=== PATIENT | female | born 1985 | race Caucasian/White ===

== ENCOUNTER 2020-03-11 18:29 | Emergency (ER) | payer MEDICAID ==
[~2020-03-11] VITALS: Ht 170.2 cm; Wt 137.9 kg
[2020-03-11 19:00] VITALS: BP 112/73
--- NOTE | 2020-03-11 21:20 | NUR ---
ERMD TO EVAULATE PT IN THE TENT
[2020-03-11 22:54] VITALS: BP 133/96
--- NOTE | 2020-03-12 00:30 | NUR ---
Patient discharged with v/s stable. Written and verbal after care instructions given and explained. Patient alert, oriented and verbalized understanding of instructions. Ambulatory with steady gait. All questions addressed prior to discharge. ID band removed. Patient advised to follow up with PMD. Rx of COLACE given. Patient educated on indication of medication including possible reaction and side effects. Opportunity to ask questions provided and answered.
== END 2020-03-12 00:30 | disposition home or self-care (01) ==
LOC: MED 18:29
DX: T17.1XXA Foreign body in nostril, initial encounter (principal); E11.9 Type 2 diabetes mellitus without complications; I10 Essential (primary) hypertension; F32.9 Major depressive disorder, single episode, unspecified; X58.XXXA Exposure to other specified factors, initial encounter; Y93.89 Activity, other specified; Y92.89 Other specified places as the place of occurrence of the external cause; Y99.8 Other external cause status
CPT/HCPCS: 76010; 99284

== ENCOUNTER 2020-05-19 20:16 | Emergency (ER) | payer MEDICAID ==
[~2020-05-19] VITALS: Ht 170.2 cm; Wt 136.7 kg
[2020-05-19 20:21] VITALS: BP 136/77
--- NOTE | 2020-05-19 20:25 | NUR ---
35 YO F BIB STUDIO COUCH FRAME BUILDER FOR C/O SUICIDAL IDEATION. PT VERBALIZED PLAN, PT STATES " I WANT TO RIP MY SKIN OUT." PT ALSO STATED SHE WAS GOING TO SWALLOW COINS. RESPIRATIONS CLEAR EVEN UNLABORED. PT DENIES CP/SOB. NO ACUTE PAIN @ THIS TIME. ABD SOFT ROUND NON DISTENDED. GURNEY LOCKED IN LOWEST POSITION. ERMD @ BEDSIDE. HX: DM, HTN, SI RX: METFORMIN, PT DOES NOT HAVE MED LIST @ THIS TIME LMP: 05/16/20 KRYSTLE
[2020-05-19 21:12] LABS: WHITE BLOOD COUNT (AUTO) 7.4 K/uL (4.8-10.8)
[2020-05-19 21:18] LABS: BASOPHILS # (AUTO) 0.1 K/uL (0.00-0.22); BASOPHILS % (AUTO) 1.4 % (0.0-2.0); EOSINOPHILS # (AUTO) 0.2 K/uL (0-0.4); EOSINOPHILS % (AUTO) 2.2 % (0.0-4.0); HEMATOCRIT 39.8 % (36-48); HEMOGLOBIN 13.6 g/dL (12.0-16.0); LYMPHOCYTES # (AUTO) 2.1 K/uL (2.5-16.5); LYMPHOCYTES % (AUTO) 28.8 % (20.5-51.1); MEAN CORPUSCULAR HEMOGLOBIN 30 pg (27-31); MEAN CORPUSCULAR HGB CONC 34 g/dL (33-37); MEAN CORPUSCULAR VOLUME 88.6 fL (80-94); MONOCYTES # (AUTO) 0.6 K/uL (0.8-1.0); MONOCYTES % (AUTO) 7.4 % (1.7-9.3); NEUTROPHILS # (AUTO) 4.5 K/uL (1.8-7.7); NEUTROPHILS % (AUTO) 60.2 % (42.2-75.2); PLATELET COUNT (AUTO) 258 K/uL (140-450); RED CELL DISTRIBUTION WIDTH 14.3 % (11.6-13.7)
--- NOTE | 2020-05-19 21:20 | NUR ---
PER TELEPSYCH REQDEWEY INITIATED
[2020-05-19 21:21] LABS: ACETAMINOPHEN < 0.5 ug/ml (10-30); ALBUMIN 3.3 g/dL (3.4-5.0); ASPARTATE AMINOTRANSFERASE 8 U/L (15-37); CARBON DIOXIDE 28.7 mmol/L (21-32); CHLORIDE 102 mmol/L (98-107); CREATININE 0.7 mg/dL (0.6-1.3); GFR ARICAN-AMERICAN 122 mL/min (>90); GLUCOSE 104 mg/dL (74-106); POTASSIUM 3.7 mmol/L (3.5-5.1); SALICYLATE < 2.8 mg/dL (2.8-20.0); SODIUM SERUM 139 mmol/L (136-145); TOTAL BILIRUBIN 0.2 mg/dL (0.0-1.0); UREA NITROGEN, BLOOD 10 mg/dL (7-18)
--- NOTE | 2020-05-19 21:32 | NUR ---
PT REFUSING COVID LAB SWABS @ THIS TIME, FERMÍN SPOKE WITH PT AND EXPLAINED NECESSITY. AWAITING TELEPYSCH. WILL CONTINUE TO OBSERVE.
--- NOTE | 2020-05-19 22:04 | NUR ---
PT IS TALKING TO THE TELEPSYCH DOCTOR AT THIS TIME, PRODUCT APPLICATIONS SCIENTIST IS AT BEDSIDE WELL.
--- NOTE | 2020-05-19 22:15 | NUR ---
COVID SWAB TIFFANIE AND PCR TAKEN AND SENT TO LAB
--- NOTE | 2020-05-19 22:38 | NUR ---
S/W VESNA COBB WHO RECOMMENDED 5150 HOLD AND CONTINUATION OF HOME MEDICATIONS. FERMÍN CRUZ MADE AWARE
--- NOTE | 2020-05-19 22:57 | NUR ---
URINE SAMPLE TAKEN, URINE DIP DONE, RESULTS SEEN BY ERMD.
--- NOTE | 2020-05-19 23:16 | NUR ---
[place] PD CALLED [phone], SPOKE WITH KENN. WHEN AVAILABLE, PD TO COME OUT TO WRITE 4820 HOLD. CHARGE NURSE MADE AWARE. WILL CONTINUE TO OBSERVE PT.
[2020-05-19 23:17] LABS: BARBITURATE, URINE NEGATIVE ng/ml (NEG <=200); BENZODIAZEPINE, URINE NEGATIVE ng/mL (NEG <=200); CANNABINOID, URINE NEGATIVE ng/mL (NEG <=50); COCAINE, URINE NEGATIVE ng/mL (NEG <=300); OPIATE, URINE NEGATIVE ng/mL (NEG <=2000); PHENCYCLIDINE SCREEN,URINE NEGATIVE ng/mL (NEG <=25)
[2020-05-19] MEDS ORDERED: ATOR10TA PO (23:19)
[2020-05-19] MEDS ORDERED: DOCU-299 PO (23:19)
[2020-05-19] MEDS ORDERED: SERT100T PO (23:19)
[2020-05-19] MEDS ORDERED: DIVA500T1 PO (23:19)
[2020-05-19] MEDS ORDERED: METF500T PO (23:19)
[2020-05-19] MEDS ORDERED: METO25TA PO (23:19)
[2020-05-19] MEDS ORDERED: OLAN20TA1 PO (23:19)
[2020-05-19] MEDS ORDERED: CLIN150C1 PO (23:19)
[2020-05-19] MEDS ORDERED: BUS5 PO (23:19)
[2020-05-19] MEDS ORDERED: ARIP15TA8 PO (23:19)
[2020-05-19] MEDS ORDERED: BEN50 PO (23:19)
[2020-05-19] MEDS ORDERED: busPIRone 5 MG TAB PO ONE (23:25)
[2020-05-19] MEDS ORDERED: ARIPiprazole 10 MG TAB PO ONE (23:25)
[2020-05-19] MEDS ORDERED: SERTRALINE 50 MG TAB PO ONE (23:25)
[2020-05-19] MEDS ORDERED: OLANZapine 10 MG VIAL IM ONE (23:25)
[2020-05-19] MEDS ORDERED: DIVALPROEX 500 MG TABEC PO ONE (23:25)
[2020-05-19] MEDS ORDERED: diphenhydrAMINE 50 MG CAP PO ONE (23:25)
--- NOTE | 2020-05-19 23:28 | NUR ---
[place] RANDALL, OFFICER WALTER AT BEDSIDE TO PLACE 5150 HOLD.
[2020-05-19] MEDS ORDERED: WATER STERILE 10 ML MC ONE (23:45)
--- NOTE | 2020-05-20 00:27 | NUR ---
MEDS GIVEN ORDERED, TOLERATED WELL. WILL CONTINUE TO MONITOR.
--- NOTE | 2020-05-20 01:10 | NUR ---
PT LAYING SUPINE IN BED. VISIBLE CHEST RISE AND FALL NOTED. BED IN LOWEST POSITION. 1:1 MONITORING AND SAFTEY MEASURES IN PLACE. ALL NEEDS MET AT THIS TIME. WILL CONTINUE TO MONITOR.
--- NOTE | 2020-05-20 03:14 | NUR ---
Patient information was received. Intake has been sent to the following facilities for review for placement. [facility]/ [facility]/ Dex Pérez/ HUSSAIN Vasquez/ Karly Sutton/ [facility] Kathi.....Will keep ER informed of any updates
--- NOTE | 2020-05-20 03:19 | NUR ---
PT ON PRONE POSITION, ASLEEP, RESPIRATION EVEN AND UNLABORED, SAFETY MEASURES IN PLACE, CONTINUE ON 1:1 MONITORING, BED IN LOW POSITION.
--- NOTE | 2020-05-20 06:09 | NUR ---
V/S TAKEN AND RECORDED, WNL, KEPT COMFORTABLE, WILL CONTINUE TO MONITOR.
--- NOTE | 2020-05-20 07:13 | NUR ---
PT STABLE, RESPIRATION EVEN AND UNLABORED, NO ACUTE CHANGES THE WHOLE SHIFT, NO DISTRESS, BEDSIDE ENDORSEMENT GIVEN TO AM SHIFT RN FOR CONTINUITY OF CARE.
--- NOTE | 2020-05-20 08:10 | NUR ---
PATIENT QUIETLY EATING BREAKFAST PT IS AAOX4, ACTING APPROPRIATLY IN A CALM, COOPERATIVE MANNER. VSS, AMBULATED WITH STEADY GAIT TO RESTROOM. PROVIDED SUPPLIES FOR AM CARE WHILE IN RESTROOM. CHANGED BED SHEETS. PT STATES SHE IS STILL "HEARING VOICES THAT ARE TELLING ME TO SWALLOW AN OBJECT TO KILL MYSELF" PT IN DIRECT LINE OF SIGHT TO NURSES STATION. NO EQUIPMENT IN ROOM IN WHICH SHE COULD HURT HERSELF WITH. PT IN AGREEMENT WITH TRANSFER TO PSYCH FACILITY. WILL CTM CLOSELY.
[2020-05-20] MEDS ORDERED: IBUPROFEN 600 MG TAB PO ONE (16:25)
[2020-05-20] MEDS ORDERED: DIVALPROEX 500 MG TABEC PO ONE (19:20)
[2020-05-20] MEDS ORDERED: ARIPiprazole 10 MG TAB PO SCH (19:20)
[2020-05-20] MEDS ORDERED: busPIRone 5 MG TAB PO SCH (19:20)
--- NOTE | 2020-05-20 20:05 | NUR ---
AWAKE, AMBULATED TO BR, VOIDED
[2020-05-20] MEDS: SERTRALINE 50 MG TAB PO SCH (21:11)
--- NOTE | 2020-05-21 02:00 | NUR ---
RESING IN BED WITH EYES CLOSED. RESP EVEN AND UNLABORED. SAFETY MEASURES IN PLACE, BEBETO CONT TO MONITOR CLOSELY
--- NOTE | 2020-05-21 04:02 | NUR ---
No beds available through the night. Updated negative results of PCR were faxed to the previous facilities to update information and continue with bed placement. [facility]/ [facility]/ [place]/ [facility]/ [facility]/ [place] Will keep ER informed of any updates.
--- NOTE | 2020-05-21 06:00 | NUR ---
RESTING IN BED WITH EYES CLOSED. IN SUPINE POSITION. RESP EVEN AND UNLABORED. SAFETY MEASURES IN PLACE, WILL CONT TO MONITOR CLOSELY.
--- NOTE | 2020-05-21 07:20 | NUR ---
ENDORSED TO DAY SHIFT RN
[2020-05-21] MEDS ORDERED: ACETAMINOPHEN EXTRA STRENGTH 500 MG TAB PO ONE (07:25)
[2020-05-21] MEDS: metFORMIN 500 MG TAB PO SCH ×2 (07:49→17:21)
--- NOTE | 2020-05-21 07:50 | NUR ---
PT IS ALERT AND AWAKE, BREATHING EVEN AND UNLABORED. NO DISTRESS NOTED. SITTER REMAINS AT BEDSIDE.
[2020-05-21] MEDS ORDERED: CRUSHER, PILL MC ONE (09:21)
[2020-05-21] MEDS: OLANZapine 5 MG ODT PO SCH ×2 (09:28→21:47)
[2020-05-21] MEDS: busPIRone 5 MG TAB PO SCH ×3 (09:28→17:20)
[2020-05-21] MEDS: ATORVASTATIN 20 MG TAB PO SCH (09:28)
[2020-05-21] MEDS: DIVALPROEX 500 MG TABEC PO SCH ×3 (09:28→17:20)
[2020-05-21] MEDS: ARIPiprazole 10 MG TAB PO SCH ×2 (09:28→21:42)
--- NOTE | 2020-05-21 10:33 | NUR ---
PT IS ALERT AND AWAKE, BREATHING EVEN AND UNLABORED. NO DISTRESS NOTED. SITTER REMAINS AT BEDSIDE. PT READING MAGAZINE
--- NOTE | 2020-05-21 11:59 | NUR ---
PT EATING LUNCH TRAY AT THIS TIME.
--- NOTE | 2020-05-21 13:00 | NUR ---
PT IS ALERT AND AWAKE, BREATHING EVEN AND UNLABORED. NO DISTRESS NOTED. SITTER REMAINS AT BEDSIDE.
--- NOTE | 2020-05-21 15:00 | NUR ---
PT IS ALERT AND AWAKE, BREATHING EVEN AND UNLABORED. NO DISTRESS NOTED. SITTER REMAINS AT BEDSIDE.
[2020-05-21] MEDS ORDERED: HYDROcodone/APAP 10/325 MG 1 TAB TAB PO STA (17:19)
--- NOTE | 2020-05-21 18:00 | NUR ---
PT ATE DINNER AT THIS TIME
--- NOTE | 2020-05-21 18:00 | NUR ---
PT IS ALERT AND AWAKE, BREATHING EVEN AND UNLABORED. NO DISTRESS NOTED. SITTER REMAINS AT BEDSIDE.
--- NOTE | 2020-05-21 19:20 | NUR ---
PT REPORT GIVEN TO JULIETA MAYBERRY, TRANSFER OF CARE AT THIS TIME
--- NOTE | 2020-05-21 19:40 | NUR ---
RECEIVED ENDORSEMENT FROM DAYSVTFT NURSE. 35 Y/O, F, LYING IN BED WITH NO SIGNS OF DISTRESS, ALERT TO VOICE, ANOx4. PT REPORTS WAS HAVING THOUGHTS TO HARM SELF AND WAS KICKING ANNA AND SLAPPING HERSELF IN THE HEAD. C/O OF HEARING VOICES BUT DENIES INTENT TO HARM HERSELF AT THIS TIME. PT VERBALIZES CONCERN ON PLACEMENT. VSS. DISCUSSED PLAN OF CARE. SAFETY MEASURES IN PLACE, ALL POTENTIAL HARMFUL EQUIPMENT REMOVED FROM ROOM. PAST MED HX: DM, HTN, SCHIZO AFFECTIVE DX, BIPOLAR DX, S.I
--- NOTE | 2020-05-21 19:55 | NUR ---
ASSISTED PT TO RESTROOM, [facility] PROVIDED, WAITED FOR PT AT DOOR, SLIGHTLY OPEN. BACK TO ER BED 5 WITHOUT INCIDENT. BED CLEANED/ORGANIZED, NO SIGNS OF ANY FOREIGN OBJECTS IN BED OR IN ROOM. WILL CONTINUE TO MONITOR.
[2020-05-21] MEDS: SERTRALINE 50 MG TAB PO SCH (21:43)
--- NOTE | 2020-05-21 21:45 | NUR ---
ALL MEDICATION INDICATIONS AND SIDE EFFECTS EXPLAINED TO PATIENT. VERBALIZED UNDERSTANDING. PATIENT TOOK ALL MEDS AND CONFIRMED WITH RN. WILL MONITOR FOR REACTIONS.
--- NOTE | 2020-05-21 23:30 | NUR ---
PT RESTING WELL IN BED, NO SIGNS OF DISTRESS, VISIBLE CHEST RISE AND FALL, EYES CLOSED, SAFETY MEASURES IN PLACE.
--- NOTE | 2020-05-22 02:12 | NUR ---
PT SITTING UP IN BED, NO COMPLAINTS AT THIS TIME. DENIES ANY INTENT TO HARM SELF. VSS. BED LOCKED AND IN LOWEST POSITION. SIDE RAILS UP, PT ABLE TO MAKE NEEDS KNOWN.
--- NOTE | 2020-05-22 02:40 | NUR ---
PT C/O LOWER BACK PAIN. FERMÍN CRUZ MADE AWARE. PT GIVEN SANDWHICH AND JUICE. ALL NEEDS MET AT THIS TIME.
[2020-05-22] MEDS ORDERED: ACETAMINOPHEN EXTRA STRENGTH 500 MG TAB PO ONE (02:45)
--- NOTE | 2020-05-22 03:10 | NUR ---
PT GIVEN SANDWICH AND JUICE BOX. NO HARMFUL UTENSILS/OBJECTS AT BEDSIDE. PAIN MEDS GIVEN. WILL REASSESS.
--- NOTE | 2020-05-22 05:45 | NUR ---
APPEARS CALM, EYES CLOSED, ALERT TO VOICE. ABLE TO SELF TURN. NO SIGNS OF DISTRESS, SAFETY MEASURES IN PLACE.
--- NOTE | 2020-05-22 06:36 | NUR ---
TELEPSYCH INITIATED PER DR. Kurt CRUZ
--- NOTE | 2020-05-22 07:18 | NUR ---
NO SIGNS OF DISTRESS, PT IN STABLE CONDITION, ENDORSED TO DAYSHIFT NURSE FOR CONTINUITY OF CARE.
--- NOTE | 2020-05-22 07:30 | NUR ---
REPORT RECEIVED FROM JULIETA MAYBERRY. PT IS RESTING WITH EYES CLOSED, BREATHING EVEN AND UNLABORED. NO DISTRESS NOTED. SITTER REMAINS AT BEDSIDE.
--- NOTE | 2020-05-22 07:30 | NUR ---
Note ana in EDM - 05/22/20 at 0732 by FROY REPORT RECEIVED FROM JULIETA MAYBERRY. PT IS RESTING WITH EYES CLOSED, BREATHING EVEN AND UNLABORED. NO DISTRESS NOTED. SITTER REMAINS AT BEDSIDE.
--- NOTE | 2020-05-22 07:30 | NUR ---
REPORT RECEIVED FROM JULIETA MAYBERRY. PT IS RESTING WITH EYES CLOSED, BREATHING EVEN AND UNLABORED. NO DISTRESS NOTED. SITTER REMAINS AT BEDSIDE.
--- NOTE | 2020-05-22 08:40 | NUR ---
Cheikh perez in [facility] - 05/22/20 [address] HAWKINS AT BEDSIDE SPEAKING TO PT
--- NOTE | 2020-05-22 08:40 | NUR ---
DR ALCOCER AT BEDSIDE SPEAKING TO PT
[2020-05-22] MEDS: ARIPiprazole 10 MG TAB PO SCH ×2 (08:47→21:00)
[2020-05-22] MEDS: busPIRone 5 MG TAB PO SCH ×3 (08:47→17:30)
[2020-05-22] MEDS: metFORMIN 500 MG TAB PO SCH ×2 (08:47→17:31)
[2020-05-22] MEDS: OLANZapine 5 MG ODT PO SCH (08:48)
[2020-05-22] MEDS: ATORVASTATIN 20 MG TAB PO SCH (08:48)
[2020-05-22] MEDS: DIVALPROEX 500 MG TABEC PO SCH ×3 (08:48→17:30)
--- NOTE | 2020-05-22 09:20 | NUR ---
PER DR ALCOCER PT IS NO LONGER ON HOLD
--- NOTE | 2020-05-22 09:47 | NUR ---
SOCIAL WORK NOTE: PATRICIA CONTACTED PATIENT'S ASSISTED, LEATHA LEROY, AND SPOKE TO INTERIM FIELD SPEC, DOMINIC BRYANT [phone]. PER DOMINIC, PATIENT'S [facility] WORKER, TIM OWUSU [phone], WOULD NEED TO BE INVOLVED BEFORE HE IS ABLE TO ACCEPT PATIENT BACK. PATRICIA CONTACTED TIM WHO REQUESTED CLINICALS BE FAXED TO [phone]. Addendum: 05/22/20 at 1614 by Franki Connor SS PATRICIA CONTACTED [facility] [phone] AND SPOKE WITH JUAN. PATRICIA INFORMED JUAN THAT HE WAS UNABLE TO CONTACT TIM THROUGHOUT THE DAY TO SEE IF CLINICALS WERE RECEIVED. PATRICIA PROVIDED JUAN PHONE NUMBER TO NURSING STATION. JUAN STATED THAT SHE WILL CONTACT FACILITY TO COORDINATE DISCHARGE.
--- NOTE | 2020-05-22 11:00 | NUR ---
PT IS ALERT AND AWAKE, BREATHING EVEN AND UNLABORED. NO DISTRESS NOTED. PT TALKING TO MOTHER ON PHONE
--- NOTE | 2020-05-22 12:00 | NUR ---
PT EATING LUNCH AT THIS TIME
--- NOTE | 2020-05-22 14:00 | NUR ---
PT IS ALERT AND AWAKE, BREATHING EVEN AND UNLABORED. NO DISTRESS NOTED. PT TALKING TO BOYFRIEND ON PHONE
--- NOTE | 2020-05-22 18:00 | NUR ---
PT EATING DINNER AT THIS TIME
--- NOTE | 2020-05-22 18:44 | NUR ---
PT IS ALERT AND AWAKE, BREATHING EVEN AND UNLABORED. NO DISTRESS NOTED.
--- NOTE | 2020-05-22 19:13 | NUR ---
Assumed patient care. Report received from SHAWANDA Vicente
--- NOTE | 2020-05-22 19:29 | NUR ---
Patient resting in bed. No distress noted. Will continue to monitor.
--- NOTE | 2020-05-22 20:38 | NUR ---
Patient in no distress at this time. Will continue to monitor.
--- NOTE | 2020-05-22 21:20 | NUR ---
Cheikh perez in EDM - 05/22/20 at 2123 by JUAN Patient discharged with v/s stable. Written and verbal after care instructions given and explained. Patient/People's care, Enrike verbalized understanding. Ambulatory with steady gait. All questions addressed prior to discharge. Advised to follow up with PMD.
[2020-05-22 21:22] VITALS: BP 110/61
== END 2020-05-22 21:21 | disposition home or self-care (01) ==
LOC: MED 20:16
DX: R45.851 Suicidal ideations (principal); E11.9 Type 2 diabetes mellitus without complications; I10 Essential (primary) hypertension; E78.00 Pure hypercholesterolemia, unspecified; F32.9 Major depressive disorder, single episode, unspecified; Z86.73 Personal history of transient ischemic attack (TIA), and cerebral infarction without residual deficits; Z20.822 Contact with and (suspected) exposure to COVID-19
CPT/HCPCS: 71045; 74018; 80053; 80305; 81002; 81025; 84703; 85025; 87426; 96372; 99285; G0480; G0482; J3490; Q0163; U0003

== ENCOUNTER 2020-06-07 19:40 | Emergency (ER) | payer MEDICAID ==
[~2020-06-07] VITALS: Ht 170.2 cm; Wt 134.3 kg
[~2020-06-07 19:40] MED LIST: ARIP15TA8 PO; ATOR10TA PO; BEN50 PO; BUS5 PO; CLIN150C1 PO; DIVA500T1 PO; DOCU-299 PO; METF500T PO; METO25TA PO; OLAN20TA1 PO; SERT100T PO
--- NOTE | 2020-06-07 19:51 | NUR ---
AMBULATED TO ER BED 6
[2020-06-07 19:54] VITALS: BP 123/90
--- NOTE | 2020-06-07 20:00 | NUR ---
35 Y/O F BROUGHT IN BY CAREGIVER FROM HOME FOR INTENT TO HARM OTHERS. SHE SAID IT STARTED AROUND 1800 TODAY 06/07/20. PT WAS PLACED IN ROOM WITH [address] PMH: HIGH CHOLESTEROL, HTN, AND DM2. IS C/O R KNEE PAIN 01/13, TOOK TYLENOL 1929. ALLERGIES TO SULFA, PENICILIIN, CIPRO. SEEN ON 05/19/20 FOR SIMILIAR INTENT. STATES SHE HAD COVID LAST YEAR, COULD NOT GIVE ME A SEASON, MONTH OR TIME FRAME OTHER THAN 2019. DENIES ANY CONTACT WITH COVID POSITIVE PERSONS OR SOB, COUGH, CHEST PAIN. PT IN ROOM 6 WITH ITEMS OUT OF ROOM IN FRONT OF NURSE STATION FOR OBS.
--- NOTE | 2020-06-07 20:20 | NUR ---
AMBULATED TO BR WITH STEADY GAIT. UA OBTAINED, CHANGED INTO PT GOWN, REMAINS IN LINE OF SIGHT.
--- NOTE | 2020-06-07 20:25 | NUR ---
COVID SWABS OBTAINED AND SENT TO LAB
--- NOTE | 2020-06-07 20:30 | NUR ---
DR. LIMON AT BEDSIDE FOR EXAM
[2020-06-07 20:31] LABS: BASOPHILS # (AUTO) 0.1 K/uL (0.00-0.22); BASOPHILS % (AUTO) 1.2 % (0.0-2.0); EOSINOPHILS # (AUTO) 0.2 K/uL (0-0.4); EOSINOPHILS % (AUTO) 2.4 % (0.0-4.0); HEMATOCRIT 39.1 % (36-48); LYMPHOCYTES # (AUTO) 1.9 K/uL (2.5-16.5); LYMPHOCYTES % (AUTO) 25.7 % (20.5-51.1); MEAN CORPUSCULAR HEMOGLOBIN 30 pg (27-31); MEAN CORPUSCULAR HGB CONC 33 g/dL (33-37); MONOCYTES # (AUTO) 0.6 K/uL (0.8-1.0); MONOCYTES % (AUTO) 7.9 % (1.7-9.3); NEUTROPHILS # (AUTO) 4.7 K/uL (1.8-7.7); NEUTROPHILS % (AUTO) 62.8 % (42.2-75.2); PLATELET COUNT (AUTO) 279 K/uL (140-450); RED CELL DISTRIBUTION WIDTH 14.6 % (11.6-13.7); WHITE BLOOD COUNT (AUTO) 7.5 K/uL (4.8-10.8)
[2020-06-07 20:42] LABS: ANION GAP 14.2 (8-16); ASPARTATE AMINOTRANSFERASE 8 U/L (15-37); CARBON DIOXIDE 27.5 mmol/L (21-32); CHLORIDE 102 mmol/L (98-107); CREATININE 0.5 mg/dL (0.6-1.3); GFR ARICAN-AMERICAN 180 mL/min (>90); GLUCOSE 92 mg/dL (74-106); POTASSIUM 3.7 mmol/L (3.5-5.1); SODIUM SERUM 140 mmol/L (136-145); TOTAL BILIRUBIN 0.2 mg/dL (0.0-1.0); UREA NITROGEN, BLOOD 11 mg/dL (7-18)
[2020-06-07 20:43] LABS: ACETAMINOPHEN < 0.5 ug/ml (10-30); ALBUMIN 3.2 g/dL (3.4-5.0); SALICYLATE < 2.8 mg/dL (2.8-20.0)
[2020-06-07] MEDS ORDERED: ACETAMINOPHEN 325 MG TAB PO ONE (20:55)
[2020-06-07 21:12] LABS: BARBITURATE, URINE NEGATIVE ng/ml (NEG <=200); BENZODIAZEPINE, URINE NEGATIVE ng/mL (NEG <=200); CANNABINOID, URINE NEGATIVE ng/mL (NEG <=50); COCAINE, URINE NEGATIVE ng/mL (NEG <=300); OPIATE, URINE NEGATIVE ng/mL (NEG <=2000); PHENCYCLIDINE SCREEN,URINE NEGATIVE ng/mL (NEG <=25)
--- NOTE | 2020-06-07 21:54 | NUR ---
PER TELEPSYCH REQUEST INITIATED
--- NOTE | 2020-06-07 22:45 | NUR ---
TELE- PSYCH EVALUATION COMPLETED.
[2020-06-07 22:54] VITALS: BP 123/90
--- NOTE | 2020-06-07 22:54 | NUR ---
CAREGIVER AT BEDSIDE. PT TO BE DISCHARGEDPatient discharged with v/s stable. Written and verbal after care instructions given and explained. Patient verbalized understanding. Ambulatory with steady gait. All questions addressed prior to discharge. Advised to follow up with PMD.
== END 2020-06-07 22:54 | disposition home or self-care (01) ==
LOC: MED 19:40
DX: F31.9 Bipolar disorder, unspecified (principal); R45.850 Homicidal ideations; E11.9 Type 2 diabetes mellitus without complications; I10 Essential (primary) hypertension; Z86.73 Personal history of transient ischemic attack (TIA), and cerebral infarction without residual deficits; Z79.899 Other long term (current) drug therapy; F20.89 Other schizophrenia; Z88.0 Allergy status to penicillin; Z88.2 Allergy status to sulfonamides; Z88.1 Allergy status to other antibiotic agents; Z20.822 Contact with and (suspected) exposure to COVID-19
CPT/HCPCS: 36415; 80053; 80305; 84703; 85025; 87426; 99285; G0480; G0482; U0003

== ENCOUNTER 2020-06-29 19:23 | Emergency (ER) | payer MEDICAID ==
[~2020-06-29] VITALS: Ht 172.7 cm; Wt 136.1 kg
--- NOTE | 2020-06-29 19:27 | NUR ---
BERKLEY TORRES TAKEN TO BED #7
--- NOTE | 2020-06-29 19:30 | NUR ---
PATIENT PRESENTS TO ED WITH SI . PT ON 5150 AND STATES SHE SWALLOWED A JEN . DENIES N/V/D; SKIN IS PINK/WARM/DRY; AAOX4 LUNGS CLEAR BL; HR EVEN AND REGULAR; PT DENIES ANY FEVER, CP, SOB, OR COUGH AT THIS TIME; PATIENT STATES PAIN OF 0/10 AT THIS TIME; VSS; PATIENT POSITIONED FOR COMFORT; HOB ELEVATED; BEDRAILS UP X2; BED DOWN. ER MD MADE AWARE OF PT STATUS.
[2020-06-29 20:22] LABS: BASOPHILS % (AUTO) 0.5 % (0.0-2.0); EOSINOPHILS # (AUTO) 0.1 K/uL (0-0.4); EOSINOPHILS % (AUTO) 1.7 % (0.0-4.0); HEMATOCRIT 39.7 % (36-48); HEMOGLOBIN 13.4 g/dL (12.0-16.0); LYMPHOCYTES # (AUTO) 1.9 K/uL (2.5-16.5); MEAN CORPUSCULAR HEMOGLOBIN 31 pg (27-31); MEAN CORPUSCULAR HGB CONC 34 g/dL (33-37); MONOCYTES # (AUTO) 0.5 K/uL (0.8-1.0); MONOCYTES % (AUTO) 7.1 % (1.7-9.3); NEUTROPHILS # (AUTO) 4.9 K/uL (1.8-7.7); NEUTROPHILS % (AUTO) 64.7 % (42.2-75.2); PLATELET COUNT (AUTO) 274 K/uL (140-450); RED BLOOD CELL COUNT(AUTO) 4.36 MIL/uL (4.20-5.40); RED CELL DISTRIBUTION WIDTH 13.9 % (11.6-13.7); WHITE BLOOD COUNT (AUTO) 7.5 K/uL (4.8-10.8)
--- NOTE | 2020-06-29 20:23 | NUR ---
WALKED URINE TO LAB AND HANDED OFF TO EDMOND.
[2020-06-29 20:36] LABS: BARBITURATE, URINE NEGATIVE ng/ml (NEG <=200); BENZODIAZEPINE, URINE NEGATIVE ng/mL (NEG <=200); CANNABINOID, URINE NEGATIVE ng/mL (NEG <=50); COCAINE, URINE NEGATIVE ng/mL (NEG <=300); OPIATE, URINE NEGATIVE ng/mL (NEG <=2000); PHENCYCLIDINE SCREEN,URINE NEGATIVE ng/mL (NEG <=25)
[2020-06-29 20:42] LABS: ALBUMIN 3.2 g/dL (3.4-5.0); ANION GAP 10.7 (8-16); ASPARTATE AMINOTRANSFERASE 8 U/L (15-37); CARBON DIOXIDE 29.3 mmol/L (21-32); CHLORIDE 104 mmol/L (98-107); CREATININE 0.6 mg/dL (0.6-1.3); GFR ARICAN-AMERICAN 145 mL/min (>90); GLUCOSE 115 mg/dL (74-106); SODIUM SERUM 140 mmol/L (136-145); THYROID STIMULATING HORMONE 2.04 uIU/mL (0.34-3.74); TOTAL BILIRUBIN 0.2 mg/dL (0.0-1.0); UREA NITROGEN, BLOOD 12 mg/dL (7-18)
[2020-06-29 20:43] LABS: ACETAMINOPHEN < 0.5 ug/ml (10-30); SALICYLATE < 2.8 mg/dL (2.8-20.0)
--- NOTE | 2020-06-29 21:26 | NUR ---
2125 SUBMITTED A TELEPSYCH FOR THIS PT CONNECT ID GIVEN AT 21:25
--- NOTE | 2020-06-29 22:35 | NUR ---
[facility]
--- NOTE | 2020-06-29 22:40 | NUR ---
UPDATE PROVIDED TO PT CAREGIVER
--- NOTE | 2020-06-29 23:03 | NUR ---
YAMILE RANDALL AT BEDSIDE TO PLACE 5150 HOLD
--- NOTE | 2020-06-29 23:05 | NUR ---
UPDATE PROVIDED TO PT CAREGIVER
--- NOTE | 2020-06-29 23:10 | NUR ---
OFFICIAL 5150 HOLD WRITTEN.
--- NOTE | 2020-06-30 01:05 | NUR ---
COVERING PRIMARY RN FOR LUNCH RELIEF---- PT SEATED UPRIGHT ON BED AND EATING SNACKS.SAFETY MEASURES IN PLACE. 1:1 MONITORING. BED IN LOWEST POSITION. WILL CONTINUE TO MONITOR.
--- NOTE | 2020-06-30 02:18 | NUR ---
01:30 FAXED CLINICALS TO [facility] [employer] 02:15 CALLED TO F/UP GOT V/MAILL LEFT MESSAGE ON AREN MISHRA'S V/MAIL.
--- NOTE | 2020-06-30 03:27 | NUR ---
Packet received for placement. Fax to [place]. Will wait for review from [facility] before faxing to other facilities.
--- NOTE | 2020-06-30 03:30 | NUR ---
S/W Court from [facility] to call back with outcome
--- NOTE | 2020-06-30 04:00 | NUR ---
RESTING COMFORTABLY WITH EYES CLOSED, RESPIRATIONS REGULAR AND UNLABORED
--- NOTE | 2020-06-30 04:49 | NUR ---
RECEIVED CALL FROM [facility], SPOKE WITH [facility]. REQUESTING FOR TEST FOR TRANSFER. FAX NUMBER [phone]
--- NOTE | 2020-06-30 05:50 | NUR ---
PT AMBULATED TO RESTROOM TO PROVIDE URINE SPECIMEN.
--- NOTE | 2020-06-30 07:10 | NUR ---
call received from ruddy [place] STATING THAT CHARGE NURSE DOES NOT FEEL THIS PATIENT IS SAFE FOR TRANSFER TO THEIR FACILITY.
--- NOTE | 2020-06-30 07:10 | NUR ---
CARE ENDORSED TO SHAWANDA GAGNON
--- NOTE | 2020-06-30 07:15 | NUR ---
ENDORSEMENT RECEIVED FROM SHAWANDA SUAZO. CONTINUATION OF CARE AT THIS POINT.
--- NOTE | 2020-06-30 07:19 | NUR ---
PT SITTING ON BED, EYES OPEN, BREATHING EVEN AND UNLABORED. PT STATES SHE REMAINS "FEELING DEPRESSED AND SUICIDAL". ASKED IF SUICIDAL IDEATION REMAINS IN PLACE TODAY. PT REPLIED "YES". SI PRECAUTIONS REMAIN IN PLACE. WILL CONTINUE TO ASSESS.
--- NOTE | 2020-06-30 08:02 | NUR ---
NOVEL CORONAVIRUS SWAB OBTAINED AND TAKEN TO LAB.
[2020-06-30] MEDS ORDERED: DIVALPROEX 500 MG TABEC PO ONE (09:00)
[2020-06-30] MEDS: ARIPiprazole 10 MG TAB PO SCH ×2 (09:17→21:06)
[2020-06-30] MEDS: busPIRone 5 MG TAB PO SCH ×3 (09:18→17:06)
[2020-06-30] MEDS: SERTRALINE 50 MG TAB PO SCH (09:18)
--- NOTE | 2020-06-30 11:05 | NUR ---
PT LYING IN ROOM, EYES CLOSED, BREATHING EVEN AND UNLABORED. SI SAFETY PRECAUTIONS AND 1:[address] WILL COTINUE TO ASSESS.
--- NOTE | 2020-06-30 12:13 | NUR ---
LUNCH TRAY PROVIDED.
--- NOTE | 2020-06-30 12:30 | NUR ---
PATIENT IN ROOM AWAKE, EATING, BEHAVING APPROPRIATELY. SAFETY PRECAUTIONS AND 1:[address] WILL CONTINUE TO ASSESS.
--- NOTE | 2020-06-30 13:19 | NUR ---
PT LYING IN ROOM, EYES CLOSED, BREATHING EVEN AND UNLABORED. SAFETY PRECAUTIONS AND 1:[address] WILL COTINUE TO ASSESS.
--- NOTE | 2020-06-30 14:42 | NUR ---
PT LYING IN ROOM, EYES CLOSED, BREATHING EVEN AND UNLABORED. SAFETY PRECAUTIONS AND 1:[address] WILL COTINUE TO ASSESS.
--- NOTE | 2020-06-30 15:15 | NUR ---
pt malka has been refered to [facility] for referal
--- NOTE | 2020-06-30 16:30 | NUR ---
PT LYING IN ROOM, EYES CLOSED, BREATHING EVEN AND UNLABORED. SAFETY PRECAUTIONS AND 1:[address] WILL COTINUE TO ASSESS.
--- NOTE | 2020-06-30 17:37 | NUR ---
PT SITTIND IN ROOM AWAKE AND QUIET, BREATHING EVEN AND UNLABORED. SAFETY PRECAUTIONS AND 1:[address] WILL COTINUE TO ASSESS.
--- NOTE | 2020-06-30 19:13 | NUR ---
ENDORSEMENT PROVIDED TO SHAWANDA SUAZO AND SHAWANDA MCNAIR FOR CONTINUATION OF CARE.
--- NOTE | 2020-06-30 19:15 | NUR ---
RECEIVED PT RESTING IN BED WITH EYES CLOSED. RESPIRATIONS REGULAR AND UNLABORED
[2020-06-30] MEDS ORDERED: IBUPROFEN 600 MG TAB PO ONE (20:55)
--- NOTE | 2020-06-30 23:56 | NUR ---
Intake information has been sent to several facilities in prior shift. [facility]/ [facility]/HUSSAIN Pulidozayra Rivera denied patient due to needing ligher level of care Intake information has also been sent to [facility]/ Roc[facility] Rehman/ [facility] [place] Will keep facility updated with any information
--- NOTE | 2020-07-01 07:15 | NUR ---
PT IN ROOM LYING IN BED, EYES CLOSED, VISIBLE CHEST RISE AND FALL. NO DISTRESS NOTED. SAFETY PRECAUTIONS AND 1:[address] WILL CONTINUE TO ASSESS.
--- NOTE | 2020-07-01 08:00 | NUR ---
Received report. [facility] still working on placement at this time.
--- NOTE | 2020-07-01 08:57 | NUR ---
PSYCH MD AT BEDSIDE
[2020-07-01] MEDS: ARIPiprazole 10 MG TAB PO SCH (09:05)
[2020-07-01] MEDS: SERTRALINE 50 MG TAB PO SCH (09:06)
[2020-07-01] MEDS: busPIRone 5 MG TAB PO SCH (09:06)
--- NOTE | 2020-07-01 09:24 | NUR ---
CONTACTED PATIENTS PREVIOUS RESIDENCE AT [facility], STAFF STATES THAT THEY ARE UNSURE IF PATIENT IS ABLE TO GO BACK FACILITY AT THIS TIME AND WILL NEED TO CONTACT PTS STOCK LAYER
--- NOTE | 2020-07-01 09:57 | NUR ---
SPOKE WITH HERMILA SMART REGARDING PATIENTS DISCHARGE ORDERS. HERMILA STATES THAT PATIENT IS UNDER A CONSERVATORSHIP BY [facility], BUT THEY WILL SEND A CAREGIVER TO COME PICK HER UP AND TAKE HER BACK TO HER FACILITY AT "[facility]". PATIENT CURRENTLY IN BED, AAOX4. GCS 15. ALL NEEDS MET AT THIS TIME.
--- NOTE | 2020-07-01 10:01 | NUR ---
PT IN BED SITTING QUIETLY, BREATHING EVEN AND UNLABORED. NO DISTRESS NOTED. SAFETY PRECAUTIONS AND 1:[address] WILL CONTINUE TO ASSESS.
[2020-07-01 10:28] VITALS: BP 133/73
--- NOTE | 2020-07-01 10:29 | NUR ---
Patient discharged with v/s stable. Written and verbal after care instructions given and explained. Patient verbalized understanding. Ambulatory WITH HARSH DRUMMOND FROM [facility]. All questions addressed prior to discharge. Advised to follow up with PMD.
== END 2020-07-01 10:29 | disposition home or self-care (01) ==
LOC: MED 19:23
DX: R45.851 Suicidal ideations (principal); F25.9 Schizoaffective disorder, unspecified; E11.9 Type 2 diabetes mellitus without complications; I10 Essential (primary) hypertension; Z20.822 Contact with and (suspected) exposure to COVID-19
CPT/HCPCS: 36415; 71045; 74018; 80053; 80305; 81002; 81025; 84443; 85025; 87426; 99285; G0480; G0482; U0003

== ENCOUNTER 2021-10-09 19:00 | Emergency (ER) | payer MEDICAID ==
[~2021-10-09] VITALS: Ht 170.2 cm; Wt 136.5 kg
[2021-10-09 19:00] VITALS: BP 119/83
[~2021-10-09 19:00] MED LIST changes: +ARIP15TA PO; -ARIP15TA8 PO; +METF-346 PO; -METF500T PO
--- NOTE | 2021-10-09 19:32 | NUR ---
pt given urine specimen cup at this time
[2021-10-10] MEDS ORDERED: MEDR10TA PO (00:44)
--- NOTE | 2021-10-10 01:08 | NUR ---
Dr. David explained results and treatment plans for patient and her caregiver.
[2021-10-10 01:26] VITALS: BP 132/79
--- NOTE | 2021-10-10 01:26 | NUR ---
Patient discharged with v/s stable. Written and verbal after care instructions given and explained. Patient alert, oriented and verbalized understanding of instructions. Ambulatory with steady gait. All questions addressed prior to discharge. ID band removed. Patient advised to follow up with PMD. Rx of Provera given. Patient educated on indication of medication including possible reaction and side effects. Opportunity to ask questions provided and answered.
== END 2021-10-10 01:28 | disposition home or self-care (01) ==
LOC: MED 19:00
DX: N93.9 Abnormal uterine and vaginal bleeding, unspecified (principal); E11.9 Type 2 diabetes mellitus without complications; I10 Essential (primary) hypertension; Z79.899 Other long term (current) drug therapy; Z88.0 Allergy status to penicillin; Z88.2 Allergy status to sulfonamides; Z88.1 Allergy status to other antibiotic agents; Z86.73 Personal history of transient ischemic attack (TIA), and cerebral infarction without residual deficits
CPT/HCPCS: 81002; 81025; 99283

== ENCOUNTER 2021-11-13 21:38 | Emergency (ER) | payer MEDICAID ==
[~2021-11-13] VITALS: Ht 170.2 cm; Wt 134.3 kg
[~2021-11-13 21:38] MED LIST changes: +MEDR10TA PO
[2021-11-13 21:40] VITALS: BP 114/72
--- NOTE | 2021-11-13 21:49 | NUR ---
PT TAKEN TO BED 5
[2021-11-13 22:18] LABS: BASOPHILS % (AUTO) 0.5 % (0.0-2.0); EOSINOPHILS # (AUTO) 0.1 K/uL (0-0.4); EOSINOPHILS % (AUTO) 1.9 % (0.0-4.0); HEMATOCRIT 39.3 % (36-48); HEMOGLOBIN 12.9 g/dL (12.0-16.0); LYMPHOCYTES # (AUTO) 2.2 K/uL (2.5-16.5); MEAN CORPUSCULAR HEMOGLOBIN 28 pg (27-31); MEAN CORPUSCULAR HGB CONC 33 g/dL (33-37); MEAN CORPUSCULAR VOLUME 85.6 fL (80-94); MONOCYTES # (AUTO) 0.5 K/uL (0.8-1.0); MONOCYTES % (AUTO) 6.4 % (1.7-9.3); NEUTROPHILS # (AUTO) 4.6 K/uL (1.8-7.7); NEUTROPHILS % (AUTO) 61.2 % (42.2-75.2); PLATELET COUNT (AUTO) 369 K/uL (140-450); RED BLOOD CELL COUNT(AUTO) 4.59 MIL/uL (4.20-5.40); RED CELL DISTRIBUTION WIDTH 15.4 % (11.6-13.7); WHITE BLOOD COUNT (AUTO) 7.5 K/uL (4.8-10.8)
[2021-11-13 22:32] LABS: APPEARANCE,URINE CLEAR (CLEAR); BILIRUBIN,URINE NEGATIVE (NEGATIVE); BLOOD, URINE TRACE-I (NEGATIVE); COLOR,URINE YELLOW (YELLOW); LEUKOCYTE ESTERASE ,URINE NEGATIVE (NEGATIVE); NITRITE, URINE NEGATIVE (NEGATIVE); UGLUCOSE NEGATIVE (NEGATIVE)
[2021-11-13 22:33] LABS: ALBUMIN 3.2 g/dL (3.4-5.0); ANION GAP 11.2 (8-16); ASPARTATE AMINOTRANSFERASE 5 U/L (15-37); CARBON DIOXIDE 26.8 mmol/L (21-32); CHLORIDE 107 mmol/L (98-107); CREATININE 0.5 mg/dL (0.6-1.3); GFR ARICAN-AMERICAN 179 mL/min (>90); GLUCOSE 128 mg/dL (74-106); SODIUM SERUM 141 mmol/L (136-145); TOTAL BILIRUBIN 0.2 mg/dL (0.0-1.0); UREA NITROGEN, BLOOD 9 mg/dL (7-18)
[2021-11-13 22:37] LABS: SALICYLATE < 2.8 mg/dL (2.8-20.0)
[2021-11-13 22:59] LABS: BARBITURATE, URINE NEGATIVE ng/ml (NEG <=200)
[2021-11-13 23:00] LABS: BENZODIAZEPINE, URINE NEGATIVE ng/mL (NEG <=200); CANNABINOID, URINE NEGATIVE ng/mL (NEG <=50); COCAINE, URINE NEGATIVE ng/mL (NEG <=300); OPIATE, URINE NEGATIVE ng/mL (NEG <=2000); PHENCYCLIDINE SCREEN,URINE NEGATIVE ng/mL (NEG <=25)
[2021-11-13 23:01] LABS: ACETAMINOPHEN < 0.5 ug/ml (10-30)
--- NOTE | 2021-11-13 23:10 | NUR ---
PT RETURN FROM RADIOLOGY
--- NOTE | 2021-11-14 00:22 | NUR ---
Dr. Bell examining patient.
--- NOTE | 2021-11-14 00:26 | NUR ---
TELEPSYCH REQUEST INITIATED PER DR. DIAZ
--- NOTE | 2021-11-14 01:15 | NUR ---
36 Y/O BIB STAFF FOR SI. PT HAD AUDITORY VOICES TELLING HER TO SWALLOW METAL. PT STATES THAT SHES " NOT DOING GOOD" AND THE VOICES TELL HER MANY THINGS THIS TIME IT TOLD HER TO SWALLOW METAL. PT STATED SHE HAS PAIN 5/10. PMH:DM2, SCHIZOPHRENIA, HTN, HYPERLIPIDEMIA, BORDERLINE PERSONAL DISORDER, PT HAD SCREW REMOVED LAST YEAR RX: FAMOTIDINE, METROPEOLOL, ATORVASTATIN, DIVALPROEX, SERTRALINE, BUSPIRONE, METFORMIN, OLANZAPRIN, ZOLPIDEM, ONDANSTERON SEE CHART FOR DOSAGES
--- NOTE | 2021-11-14 05:47 | NUR ---
PT SLEEPING IN A SIDE LYING POSITION. MIDDLE SCHOOL TECHNOLOGY TEACHER AT BEDSIDE
--- NOTE | 2021-11-14 07:01 | NUR ---
RETURN CALL FROM [facility]LE[facility]. TALAMANTES WHO SPOKE WITH PRIMARY NURSE Ling BRADEN
--- NOTE | 2021-11-14 07:07 | NUR ---
GAVE REPORT TO
--- NOTE | 2021-11-14 07:15 | NUR ---
SOC TELEMED DOCTOR SPEAKING WITH PATIENT
--- NOTE | 2021-11-14 07:23 | NUR ---
Pt report given to CHRISTIAN. Transfer of care at this time.
--- NOTE | 2021-11-14 07:24 | NUR ---
Recevied report from KIMANI Ward for transfer of care.
[2021-11-14 08:11] VITALS: BP 135/72
--- NOTE | 2021-11-14 08:11 | NUR ---
Patient discharged with v/s stable. Written and verbal after care instructions given. Patient verbalized understanding. Ambulatory with steady gait. All questions addressed prior to discharge. Advised to follow up with PMD.
--- NOTE | 2021-11-14 08:41 | NUR ---
The patient's care was reviewed and supervised by Roselyn Zaidi RN.
--- NOTE | 2021-11-14 08:42 | NUR ---
Chart checked and completed. The patient's care was reviewed and supervised by Roselyn Zaidi RN.
== END 2021-11-14 08:11 | disposition home or self-care (01) ==
LOC: MED 21:38
DX: R45.851 Suicidal ideations (principal); Z20.822 Contact with and (suspected) exposure to COVID-19; F29 Unspecified psychosis not due to a substance or known physiological condition; R44.0 Auditory hallucinations; R07.9 Chest pain, unspecified; E11.9 Type 2 diabetes mellitus without complications; I10 Essential (primary) hypertension; Z88.0 Allergy status to penicillin; Z88.1 Allergy status to other antibiotic agents; Z88.2 Allergy status to sulfonamides; Z79.899 Other long term (current) drug therapy; Z79.84 Long term (current) use of oral hypoglycemic drugs; Z98.890 Other specified postprocedural states
CPT/HCPCS: 36415; 71045; 74018; 80053; 80305; 81003; 81025; 85025; 87426; 87635; 99285; C9803; G0480; G0482

== ENCOUNTER 2021-11-16 16:30 | Emergency (ER) | payer MEDICAID ==
[~2021-11-16] VITALS: Ht 170.2 cm; Wt 135.6 kg
[2021-11-16 17:00] VITALS: BP 107/70
--- NOTE | 2021-11-16 17:06 | NUR ---
PT AMBULATED TO LOBBY
[2021-11-16] MEDS ORDERED: IBUP-2213 PO (19:40)
== END 2021-11-16 19:47 | disposition home or self-care (01) ==
LOC: MED 16:30
DX: T18.8XXA Foreign body in other parts of alimentary tract, initial encounter (principal); Z20.822 Contact with and (suspected) exposure to COVID-19; J02.9 Acute pharyngitis, unspecified; E11.9 Type 2 diabetes mellitus without complications; I10 Essential (primary) hypertension; Z88.0 Allergy status to penicillin; Z88.1 Allergy status to other antibiotic agents; Z88.2 Allergy status to sulfonamides; Z79.899 Other long term (current) drug therapy; Z79.84 Long term (current) use of oral hypoglycemic drugs; X58.XXXA Exposure to other specified factors, initial encounter; Y93.89 Activity, other specified; Y92.89 Other specified places as the place of occurrence of the external cause; Y99.8 Other external cause status
CPT/HCPCS: 70360; 74018; 99284

== ENCOUNTER 2022-05-11 23:40 | Inpatient (IN) | payer MEDICAID ==
[~2022-05-11] VITALS: Ht 170.2 cm; Wt 142.0 kg
[~2022-05-11 23:40] MED LIST changes: +IBUP-2213 PO
[2022-05-11 23:52] VITALS: BP 126/72
--- NOTE | 2022-05-11 23:55 | NUR ---
TO LOBBY A/W BED AMBULATORY
--- NOTE | 2022-05-12 02:54 | NUR ---
pt to bed 11 ambulatory
[2022-05-12] MEDS ORDERED: HYDROcodone/APAP 10/325 MG 1 TAB TAB PO ONE (03:20)
--- NOTE | 2022-05-12 03:38 | NUR ---
Urine sample collected and sent to lab.
[2022-05-12 03:40] LABS: BASOPHILS # (AUTO) 0.1 K/uL (0.00-0.22); BASOPHILS % (AUTO) 0.9 % (0.0-2.0); EOSINOPHILS # (AUTO) 0.3 K/uL (0-0.4); EOSINOPHILS % (AUTO) 3.7 % (0.0-4.0); HEMATOCRIT 32.5 % (36-48); HEMOGLOBIN 10.6 g/dL (12.0-16.0); LYMPHOCYTES # (AUTO) 2.6 K/uL (2.5-16.5); LYMPHOCYTES % (AUTO) 30.9 % (20.5-51.1); MEAN CORPUSCULAR HEMOGLOBIN 27 pg (27-31); MEAN CORPUSCULAR HGB CONC 33 g/dL (33-37); MEAN CORPUSCULAR VOLUME 81.9 fL (80-94); MONOCYTES # (AUTO) 0.7 K/uL (0.8-1.0); MONOCYTES % (AUTO) 8.2 % (1.7-9.3); NEUTROPHILS # (AUTO) 4.7 K/uL (1.8-7.7); NEUTROPHILS % (AUTO) 56.3 % (42.2-75.2); PLATELET COUNT (AUTO) 271 K/uL (140-450); RED BLOOD CELL COUNT(AUTO) 3.97 MIL/uL (4.20-5.40); RED CELL DISTRIBUTION WIDTH 15.9 % (11.6-13.7); WHITE BLOOD COUNT (AUTO) 8.3 K/uL (4.8-10.8)
--- NOTE | 2022-05-12 03:44 | NUR ---
Patient taken to CT scan via WC
[2022-05-12 03:46] LABS: APPEARANCE,URINE CLOUDY (CLEAR); BILIRUBIN,URINE NEGATIVE (NEGATIVE); BLOOD, URINE LARGE (NEGATIVE); COLOR,URINE RED (YELLOW); LEUKOCYTE ESTERASE ,URINE TRACE (NEGATIVE); NITRITE, URINE NEGATIVE (NEGATIVE); PH,URINE 5.5 (5.0-9.0); UGLUCOSE NEGATIVE (NEGATIVE)
--- NOTE | 2022-05-12 03:49 | NUR ---
PT RETURN FROM CT
[2022-05-12 03:56] LABS: ALBUMIN 3.2 g/dL (3.4-5.0); CARBON DIOXIDE 28.7 mmol/L (21-32); CREATININE 0.6 mg/dL (0.6-1.3); POTASSIUM 3.7 mmol/L (3.5-5.1); TOTAL BILIRUBIN 0.1 mg/dL (0.0-1.0)
[2022-05-12 04:03] LABS: RBC,URINE TOO NUMEROUS TO COUN /HPF (0-5)
--- NOTE | 2022-05-12 04:15 | NUR ---
residential staff at bedside with patient.
--- NOTE | 2022-05-12 04:25 | NUR ---
Cheikh perez in [facility] - 05/12/22 at 0425 by CHAZ PT MOVED TO ER BED 11
--- NOTE | 2022-05-12 04:26 | NUR ---
PT MOVED TO ER BED 5
--- NOTE | 2022-05-12 05:41 | NUR ---
pt resting on groundwater monitoring technician
--- NOTE | 2022-05-12 06:15 | NUR ---
unable to established iv, rica haider made aware,states will try with iv us. us set up at bedside, all iv medication held.
--- NOTE | 2022-05-12 06:36 | NUR ---
pt requires 1:1 sitter at all times. jama sexton states her staff is unable to stay if pt is admitted. house supervisior made aware, states he will rely message to the next house sup to find a sitter. darshan states it's ok for staff to stay until we find coverage.
--- NOTE | 2022-05-12 06:47 | NUR ---
pt called mom from ER phone
[2022-05-12] MEDS ORDERED: cefTRIAXone 1,000 MG VIAL ONE (07:23)
--- NOTE | 2022-05-12 07:28 | NUR ---
transfer of care to [facility]
--- NOTE | 2022-05-12 07:30 | NUR ---
Report recieved from KIMANI Severino for transfer of care.
[2022-05-12] MEDS ORDERED: KETOROLAC 15 MG/ML VIAL IVP ONE (08:05)
--- NOTE | 2022-05-12 08:15 | NUR ---
Spoke to Ellen Pendleton to update her on patients information.
[2022-05-12] MEDS ORDERED: POTASSIUM CHLORIDE 10 MEQ TABER PO PRN (10:20)
[2022-05-12] MEDS ORDERED: MAGNESIUM OXIDE 400 MG TAB PO PRN (10:20)
[2022-05-12] MEDS ORDERED: KCL 20 MEQ IN 100 mL PREMIX 200 ML IV PRN (10:20)
[2022-05-12] MEDS ORDERED: MAG SULF 2000 MG/WATER PREMIX 50 ML IV PRN (10:20)
--- NOTE | 2022-05-12 10:25 | NUR ---
Patient requesting to speak to her mom. Phone call was transferred. Janel [phone]
[2022-05-12] MEDS: NACL 0.9% 1,000 ML IV SCH (10:44)
--- NOTE | 2022-05-12 12:03 | NUR ---
Patient is laying in bed, respirations even and unlabored. All needs met by staff.
[2022-05-12] MEDS: METOCLOPRAMIDE 10 MG/2 ML INJ VIAL IVP PRN (13:51)
--- NOTE | 2022-05-12 14:15 | NUR ---
PATIENT IV NOT FLUSHING THROUGH, PATIENT REPORTS DISCOMFORT AT SITE, IV REMOVED, CATHETER INTACT. 22G ESTABLISHED TO LEFT WRIST
--- NOTE | 2022-05-12 15:27 | NUR ---
Updated [employer]ible [employer] party of patients condition, Elmer Brown.
--- NOTE | 2022-05-12 17:02 | NUR ---
patient requesting to speak to mom. Phone call made and transfered to wireless phone.
[2022-05-12] MEDS: MORPHINE SULFATE 4 MG/ML SYR IVP PRN (17:22)
--- NOTE | 2022-05-12 19:26 | NUR ---
Report given to KIMANI Severino for transfer of care.
--- NOTE | 2022-05-12 20:13 | NUR ---
37 Y/O F states she has 10/10 sharp abdominal pain with nausea. pt is awake and alert.
--- NOTE | 2022-05-12 20:30 | NUR ---
pt awaiting admission
--- NOTE | 2022-05-12 20:45 | NUR ---
Patient will be admitted to care of Angel. Admited to Angel. Will go to room 122B. Belongings list completed. Report to Zeenat MAYBERRY.
--- NOTE | 2022-05-12 21:08 | NUR ---
The patient's care was reviewed and supervised by Mia Cortes RN.
[2022-05-12 22:00] VITALS: BP 115/68
--- NOTE | 2022-05-12 22:00 | NUR ---
Admitted from , ER TO [facility] FOR OBSERVATION, with chief complaint of ABDOMINAL PAIN , 37 y/o ,Female, Cooperative, AWAKE, A/OX4. RESPIRATION EVEN AND UNLABORED. IV SALINE LOCK AT THE LEFT WRIST G22, PATENT AND INTACT. LUNGS CLEAR ON BILATERAL AUSCULTATION. ABDOMEN SOFT NON-TENDER WITH POSITIVE BOWEL SOUNDS ON ALL QUADRANTS. PATIENT IS AMBULATORY TO THE . ER NURSE REPORTED THERE IS NO ORDER FOR SITTER FOR THIS PATIENT AND IS NOT COMBATIVE NOR UNCOOPERATIVE. UPON ADMISSION PT ADMITS SHE HAS HISTORY OF SCHIZOAFFECTIVE DISORDER, BIPOLAR AND 5150 BUT DENIES ANY SUICIDAL THOUGHTS AT THIS TIME. DENIES PAIN 0/10.oriented to call light, bed, phone,television, bathroom, smoking policy,visiting hours, procedures, ID bracelet on. Belongings list checked.
--- NOTE | 2022-05-12 22:30 | NUR ---
HEAD TO ASSESSMENT DONE WITH RN. SKIN INTACT. NOTED LEFT THIRD TOE WITHOUT NAIL BUT NO OPEN WOUND. PATIENT SAID THAT HER NAIL GOT CAUGHT WITH HER SOCK AND WHEN SHE PULLED HER SOCKS THE TOENAIL GOES WITH IT.
[2022-05-12] MEDS: HYDROcodone/APAP 5/325 MG 1 TAB TAB PO PRN (23:52)
--- NOTE | 2022-05-13 | NUR ---
SLEEPING COMFORTABLY IN BED, RESPIRATION EVEN AND UNLABORED.
[2022-05-13] MEDS: NACL 0.9% 1,000 ML IV SCH ×3 (00:09→21:29)
--- NOTE | 2022-05-13 02:00 | NUR ---
AMBULATED TO BR TO VOID. GAIT STEADY.
[2022-05-13 04:00] VITALS: BP 109/69
--- NOTE | 2022-05-13 05:00 | NUR ---
SITTING ON BED. IV INFILTRATED.
--- NOTE | 2022-05-13 05:30 | NUR ---
SYLVIA, SEVERAL ATTEMPTS MADE TO FIND A LINE BUT UNABLE TO START NEW IV LINE. WILL INFORM MD TO REQUEST FOR PICC LINE PLACEMENT.
--- NOTE | 2022-05-13 06:00 | NUR ---
MESSAGED DR. DRUMMOND PT IS HARDSTICK IF WE CAN ORDER PICC LINE FOR PATIENT. DID NOT MESSAGE BACK.
[2022-05-13 06:06] LABS: BASOPHILS % (AUTO) 0.7 % (0.0-2.0); EOSINOPHILS # (AUTO) 0.2 K/uL (0-0.4); EOSINOPHILS % (AUTO) 2.8 % (0.0-4.0); HEMATOCRIT 34.1 % (36-48); HEMOGLOBIN 11.1 g/dL (12.0-16.0); LYMPHOCYTES # (AUTO) 1.5 K/uL (2.5-16.5); LYMPHOCYTES % (AUTO) 23.2 % (20.5-51.1); MEAN CORPUSCULAR HEMOGLOBIN 27 pg (27-31); MEAN CORPUSCULAR HGB CONC 33 g/dL (33-37); MEAN CORPUSCULAR VOLUME 81.4 fL (80-94); MONOCYTES # (AUTO) 0.4 K/uL (0.8-1.0); NEUTROPHILS # (AUTO) 4.3 K/uL (1.8-7.7); NEUTROPHILS % (AUTO) 67.3 % (42.2-75.2); PLATELET COUNT (AUTO) 262 K/uL (140-450); RED BLOOD CELL COUNT(AUTO) 4.19 MIL/uL (4.20-5.40); RED CELL DISTRIBUTION WIDTH 16.4 % (11.6-13.7); WHITE BLOOD COUNT (AUTO) 6.3 K/uL (4.8-10.8)
[2022-05-13] MEDS: HYDROcodone/APAP 5/325 MG 1 TAB TAB PO PRN ×3 (06:15→23:29)
[2022-05-13 06:24] LABS: ALBUMIN 3.1 g/dL (3.4-5.0); ANION GAP 10.4 (8-16); CARBON DIOXIDE 29.2 mmol/L (21-32); CREATININE 0.4 mg/dL (0.6-1.3); MAGNESIUM 1.7 mg/dL (1.8-2.4); POTASSIUM 3.6 mmol/L (3.5-5.1); TOTAL BILIRUBIN 0.4 mg/dL (0.0-1.0)
--- NOTE | 2022-05-13 07:29 | NUR ---
CONDITION REMAIN STABLE. ENDORSED TO AM SHIFT NURSE FOR CONTINUITY OF CARE.
--- NOTE | 2022-05-13 07:30 | NUR ---
RECIVED PATIENT FROM ELECTRONIC SECURITY SPECIALIST NURSE.POC DISCUSSED.ALL SAFETY MEASURES IN PLACE.PATIENT IS SLEEPING,CHEST RISING AND FALLING EVEN.NO SIGNS OF DISTRESS NOTED.WILL CONTINUE TO MONITOR.
[2022-05-13 08:00] VITALS: BP 127/72
--- NOTE | 2022-05-13 09:21 | NUR ---
PATIENT HAS BEEN SCREENED AND CATEGORIZED MODERATE NUTRITION RISK. PATIENT WILL BE SEEN WITHIN 3-5 DAYS OF ADMISSION. REVIEWED BY SALO SHIN RD
[2022-05-13 12:00] VITALS: BP 127/72
[2022-05-13] MEDS: METOCLOPRAMIDE 10 MG/2 ML INJ VIAL IVP PRN ×2 (14:05→18:12)
--- NOTE | 2022-05-13 14:10 | NUR ---
PATIENT COMPLAINED OF NAUSEA.MEDICATED PRN PORDERS.
--- NOTE | 2022-05-13 14:23 | NUR ---
PATIENTS VITALS STABLE,OFF FROM UNIT TO XRAY FOR SMALL BOWEL FOLLOW THROUGH.
[2022-05-13] MEDS: MORPHINE SULFATE 4 MG/ML SYR IVP PRN ×2 (15:54→21:14)
--- NOTE | 2022-05-13 15:54 | NUR ---
TECHNICIANS AT BEDSIDE.MEDICATED WITH PRN PAIN MEDS.
[2022-05-13 16:00] VITALS: BP 146/85
--- NOTE | 2022-05-13 16:45 | NUR ---
PATIENT CAME BACK FROM XRAY,STILL NEEDS TO BE EVALUTED FOR SMALL BOWEL FOLLOW THROUGH.TECHNICIANS AT BEDSIDE.COMPLAINED OF PAIN .
--- NOTE | 2022-05-13 18:52 | NUR ---
PATIENT STILL ON NPO.IVF 80 ML PER HOUR,PAGED MD REGARDING THE RECONCILE MEDICATIONS AND THE DIET.
[2022-05-13 20:00] VITALS: BP 106/62
--- NOTE | 2022-05-13 21:00 | NUR ---
ASSESSMENT COMPLETED PLAN OF CARE REVIEWED PT ENDORSES SHE HAD 2 BOWEL MOVEMENTS TODAY AND DENIES CONSTIPATION NAUSEA AND VOMITTING MD YORDAN RASHEED AND MD GRAY BISHOP SAFETY SPECIALIST AND GAVE ORDERS FOR A CLEAR LIQUID DIET WILL NOTE AND CARRY OUT PT ORIENTED TO ROOM AND CALL LIGHT IN REACH WILL CONTINUE TO MONITOR AND ASSESS
[2022-05-14] VITALS: BP 112/64
[2022-05-14] MEDS: MORPHINE SULFATE 4 MG/ML SYR IVP PRN ×2 (02:05→13:27)
--- NOTE | 2022-05-14 02:08 | NUR ---
PT AWAKE ENDORSES ABDOMINAL PAIN MEDICATED ORDERED NO DISTRESS WILL CONTINUE TO MONITOR AND ASSESS
[2022-05-14 04:00] VITALS: BP 120/60
--- NOTE | 2022-05-14 04:48 | NUR ---
PT ENDORSES HEADACHE 4/10 WILL GIVE TYLENOL ORDERED
[2022-05-14] MEDS: ACETAMINOPHEN 325 MG TAB PO PRN (04:52)
[2022-05-14] MEDS: METOCLOPRAMIDE 10 MG/2 ML INJ VIAL IVP PRN ×2 (05:29→15:27)
--- NOTE | 2022-05-14 05:36 | NUR ---
PT ENDORSES NAUSEA NO VOMITTING REGLAN GIVEN ORDERED
[2022-05-14 06:02] LABS: BASOPHILS % (AUTO) 0.7 % (0.0-2.0); EOSINOPHILS # (AUTO) 0.2 K/uL (0-0.4); HEMATOCRIT 35.2 % (36-48); HEMOGLOBIN 11.4 g/dL (12.0-16.0); LYMPHOCYTES # (AUTO) 1.6 K/uL (2.5-16.5); MEAN CORPUSCULAR HEMOGLOBIN 26 pg (27-31); MEAN CORPUSCULAR HGB CONC 32 g/dL (33-37); MEAN CORPUSCULAR VOLUME 81.8 fL (80-94); MONOCYTES # (AUTO) 0.4 K/uL (0.8-1.0); MONOCYTES % (AUTO) 7.6 % (1.7-9.3); NEUTROPHILS # (AUTO) 3.6 K/uL (1.8-7.7); NEUTROPHILS % (AUTO) 61.7 % (42.2-75.2); PLATELET COUNT (AUTO) 296 K/uL (140-450); RED CELL DISTRIBUTION WIDTH 16.3 % (11.6-13.7); WHITE BLOOD COUNT (AUTO) 5.8 K/uL (4.8-10.8)
[2022-05-14 06:28] LABS: ALBUMIN 3.2 g/dL (3.4-5.0); ANION GAP 10.9 (8-16); CARBON DIOXIDE 30.6 mmol/L (21-32); CREATININE 0.6 mg/dL (0.6-1.3); MAGNESIUM 1.7 mg/dL (1.8-2.4); POTASSIUM 3.5 mmol/L (3.5-5.1); TOTAL BILIRUBIN 0.2 mg/dL (0.0-1.0)
--- NOTE | 2022-05-14 06:38 | NUR ---
PT REFUSE TO HAVE IV FLUIDS ENDORSES SHE IS DRINKING ENOUGH AND CONSUMED ONE LITER OF WATER SINCE BEING PLACED ON CLEAR LIQUIDS RISK AND BENEFITS EXPLAINED PT CONTINUES TO REFUSE IV FLUIDS WILL ENDORSE TO ONCOMING RN TO FOLLOW UP
--- NOTE | 2022-05-14 07:10 | NUR ---
RECEIVED REPORT FROM NIGHT NURSE FELIPE FOR CONTINUITY OF CARE. INITIAL ASSESSMENT DONE. IVF INFUSING WELL. CALL LIGHT KEPT WITHIN REACH. WILL CONTINUE TO MONITOR.
[2022-05-14 08:00] VITALS: BP 113/76
[2022-05-14] MEDS: HYDROcodone/APAP 5/325 MG 1 TAB TAB PO PRN ×2 (09:35→18:51)
--- NOTE | 2022-05-14 09:35 | NUR ---
PRN NORCO PO WAS GIVEN FOR PAIN MANAGEMENT.
--- NOTE | 2022-05-14 09:38 | NUR ---
MAGNESIUM 1.7 DR. DRUMMOND NOTIFIED, AND STATED GIVE PRN MAGNESIUM IV. PER PARAMETER TO GIVE BELOW 1.5
[2022-05-14] MEDS: NACL 0.9% 1,000 ML IV SCH (12:20)
--- NOTE | 2022-05-14 14:15 | NUR ---
PT COMPLAINING SHE WAS HEARING VOICES. DR. MENJIVAR NOTIFIED AWAITING FOR RESPONSE.
--- NOTE | 2022-05-14 14:18 | NUR ---
RECEIVED NEW ORDER FROM DR. SPAULDING, ANDERSON 12.5 MF PO Q 12H PRN FOR PSYCHOSIS. NOTED AND CARRIED OUT.
[2022-05-14] MEDS ORDERED: OLANZapine 5 MG TAB PO PRN (14:20)
--- NOTE | 2022-05-14 15:05 | NUR ---
PRN ZYPREXA WAS GIVEN. TOLERATING WELL.
--- NOTE | 2022-05-14 15:30 | NUR ---
SPOKE TO PATIENT CONSERVATOR HUNTER, STATING PATIENT IS NOT SAFE TO BE DISCHARGE D/T PATIENT STATED TO HURT HERSELF. CHARGE NURSE NOTIFIED, NOTIFIED, SW NOTIFIED.
--- NOTE | 2022-05-14 16:14 | NUR ---
PATIENT STATED "I WANNA HURT MYSELF". DR. DRUMMOND NOTIFIED WITH NEW ORDER HOLD D/C AND PSYCH EVALUATION. NOTED AND CARRIED OUT.
--- NOTE | 2022-05-14 16:51 | NUR ---
PT NOTED VERY COMBATIVE, SCREAMING ON HALLWAY, STATING "I WANNA HURT MYSELF". DR. DRUMMOND NOTIFIED WITH NEW ORDER ZYPREXA 5 MG IM NOW. ORDER NOTED AND CARRIED OUT.
[2022-05-14] MEDS ORDERED: COMMUNICATION ORDER MC ONE (16:55)
[2022-05-14] MEDS ORDERED: OLANZapine 10 MG VIAL IM ONE (17:10)
--- NOTE | 2022-05-14 17:11 | NUR ---
ZYPREXA 5 MG IM WAS GIVEN. TOLERATING WELL.
[2022-05-14] MEDS ORDERED: OLANZapine 10 MG VIAL IM SCH (17:15)
--- NOTE | 2022-05-14 18:15 | NUR ---
RECHECKED PATIENT. SLEEPING AT THIS TIME. NO BIZARRE BEHAVIOR NOTED. WILL CONTINUE TO MONITOR.
--- NOTE | 2022-05-14 18:51 | NUR ---
PT COMPLAINT OF LEG PAIN. PRN NORCO WAS GIVEN.
--- NOTE | 2022-05-14 19:20 | NUR ---
BEDSIDE REPORT GIVEN TO SAWYER FOR CONTINUITY OF CARE. REMAINS STABLE.
--- NOTE | 2022-05-14 19:21 | NUR ---
ENDORSEMENT OF PATIENT FROM ARVIN HARMAN, PATIENT WAS STABLE DURING SHIFT REPORT. PATIENT WAS SITTING IN THE CHAIR BED. STATED SHE HAS PAIN IN HER CHEST BYE WAS INFORMED THEY GAVE HER MEDICATION FOR THE PAIN, SHE WALKED TO THE BED AND WENT TO SLEEP. PATIENT IS ON ROOM AIR WITHOUT RESPIRATORY DISTRESS. KEPT CLEAN AND DRY AT THE TIME, PATIENT IS ABLE TO AMBULATE TO THE RESTROOM. SIDE RAILS UP X2 FOR SAFETY AND COMFORT. PATIENT DOES NOT UNDERSTAND WHY SHE WAS IN THE HOSPITAL. NURSING GAVE EDUCATION AND REASSURANCE TO HIS REASON IN THE HOSPITAL. ALL NEED ARE MET AT THIS TIME. NURSING WILL FREQUENT THE ROOM FOR ANTICIPATED HELP. [email or web address]
[2022-05-14 20:00] VITALS: BP 120/63
--- NOTE | 2022-05-14 20:45 | NUR ---
DR FATIMA CALLED BACK AND SUPPOSED TO DO A PSYCH EVALUATION BUT THE PATIENT IS ASLEEP AT THIS TIME. PER DR FATIMA DON'T WAKE THE PATIENT UP AND LET THE PATIENT SLEEP. DR FATIMA STATED THAT HE WILL JUST CALL TOMORROW TO EVALUATE THE PATIENT.
--- NOTE | 2022-05-14 23:05 | NUR ---
PATIENT NOTED IN BED ASLEEP WITH NO PAIN OR RESPIRATORY DISCOMFORTS. [email or web address]
[2022-05-15] MEDS: NACL 0.9% 1,000 ML IV SCH ×2 (00:50→13:20)
--- NOTE | 2022-05-15 03:13 | NUR ---
PATIENT NOTED IN BED ASLEEP WITH NO PAIN OR RESPIRATORY DISCOMFORTS. [email or web address]
[2022-05-15 04:00] VITALS: BP 115/59
[2022-05-15 07:08] LABS: BASOPHILS % (AUTO) 0.6 % (0.0-2.0); EOSINOPHILS # (AUTO) 0.2 K/uL (0-0.4); EOSINOPHILS % (AUTO) 2.8 % (0.0-4.0); HEMATOCRIT 36.9 % (36-48); HEMOGLOBIN 11.9 g/dL (12.0-16.0); LYMPHOCYTES # (AUTO) 1.6 K/uL (2.5-16.5); LYMPHOCYTES % (AUTO) 26.3 % (20.5-51.1); MEAN CORPUSCULAR HEMOGLOBIN 26 pg (27-31); MEAN CORPUSCULAR HGB CONC 32 g/dL (33-37); MONOCYTES # (AUTO) 0.5 K/uL (0.8-1.0); NEUTROPHILS # (AUTO) 3.6 K/uL (1.8-7.7); NEUTROPHILS % (AUTO) 61.3 % (42.2-75.2); PLATELET COUNT (AUTO) 327 K/uL (140-450); RED CELL DISTRIBUTION WIDTH 16.4 % (11.6-13.7)
--- NOTE | 2022-05-15 07:09 | NUR ---
ENDORSED NURSE TO ARVIN HARMAN, PATIENT WAS STABLE DURING SHIFT CHANGE. [email or web address]
[2022-05-15 07:33] LABS: ALBUMIN 3.2 g/dL (3.4-5.0); ANION GAP 10.2 (8-16); CARBON DIOXIDE 29.4 mmol/L (21-32); CREATININE 0.6 mg/dL (0.6-1.3); MAGNESIUM 1.8 mg/dL (1.8-2.4); POTASSIUM 3.6 mmol/L (3.5-5.1); TOTAL BILIRUBIN 0.2 mg/dL (0.0-1.0)
[2022-05-15 08:00] VITALS: BP 108/62
[2022-05-15] MEDS: HYDROcodone/APAP 5/325 MG 1 TAB TAB PO PRN (09:07)
--- NOTE | 2022-05-15 11:04 | NUR ---
DC PLANNING DC PLANNING ASSESSMENT COMPLETE SEE ASSESSMENT FOR DETAILS PT IS CURRENTLY PENDING A PSYCH EVAL AND HAS BEEN MOVED TO ROOM 109 WITH SITTER. TENTATIVE DC PLAN IS TO RETURN TO RESIDENTIAL ONCE CLEARED BY PSYCH. [facility] REPORTS TRANSPORTATION ARRANGED BY RESIDENTIAL ONCE CLEARED. Addendum: 05/15/22 at 1105 by Seymour Triplett SS Amended: Links added.
--- NOTE | 2022-05-15 11:55 | NUR ---
TELEPSYCH CONSULT DONE WITH DR. FATIMA, PT IS CLEARED FOR DISCHARGED. DR. MENJIVAR NOTIFIED AND MADE AWARE.
--- NOTE | 2022-05-15 13:34 | NUR ---
RN spoke with Elmer from the patients prison, [facility]. [facility] is willing to take the patient back today as patient has been cleared by the Psychiatrist. Per Elmer, he needs documentation of the continuing care plan, documentation that patients SBO is resolved, Covid rapid testing within the last 24 hours and documentation that the patient has been cleared by the Psychiatrist. RN faxed progress notes, Covid results from admission and SBFT results, endorsed other documentation needs to the patients nurse to F/U with Dr. Ortiz, repeat Covid rapid will also be done. Reji contact information is phone [phone], fax [phone].
--- NOTE | 2022-05-15 18:30 | NUR ---
PATIENT IS FOR DISCHARGE BACK TO [facility]. PENDING TRANSPORTATION. WILL FOLLOW UP.
--- NOTE | 2022-05-15 19:20 | NUR ---
BEDSIDE REPORT GIVEN TO LAWRENCE FOR CONTINUITY OF CARE. ENDORSED PT IS FOR DISCHARGED PENDING TRANSPORTATION. REMAINS STABLE.
--- NOTE | 2022-05-15 19:21 | NUR ---
PATIENT WAS ENDORSED BY ARVIN HARMAN, DURING SHIFT REPORT PATIENT WAS STABLE. PATIENT WILL BE DISCHARGED TO [facility] APPROXIMATELY AT 830PM TO 9PM. PATIENT ALERT AND EXCITED TO LEAVE. NO NOTED S/S OF PAIN/DISCOMFORT. NO NOTED RESPIRATORY DISTRESS AT THIS TIME. PATIENT HAS AN APPROPRIATED FACIAL EXPRESSION THE QUESTIONING AND EVENTS. APPROPRIATELY DRESSED FOR DISCHARGE. CALL LIGHT WITHIN REACH. BED LOW FOR SAFETY SIDE RQAILS UP X 2 FOR SAFETY AND COMFORT. [id number]
[2022-05-15] MEDS: ACETAMINOPHEN 325 MG TAB PO PRN (19:42)
--- NOTE | 2022-05-15 19:55 | NUR ---
PATIENT C/O HEADACH TYLENOL PRN WAS GIVEN. [email or web address]
== END 2022-05-15 20:40 | DRG 247 ==
LOC: MED 23:40 → MTU 05-12 10:17 → OBSVTOIN 05-12 10:22 → MTU 05-12 20:17 → MMU 05-13 15:50 → MTU 05-14 17:00
PROVIDERS: ADMIT Hospitalist; ATTEND Hospitalist
DX: K56.600 Partial intestinal obstruction, unspecified as to cause (principal); E44.1 Mild protein-calorie malnutrition; F25.9 Schizoaffective disorder, unspecified; N39.0 Urinary tract infection, site not specified; E66.01 Morbid (severe) obesity due to excess calories; I10 Essential (primary) hypertension; E78.5 Hyperlipidemia, unspecified; Z20.822 Contact with and (suspected) exposure to COVID-19; F41.9 Anxiety disorder, unspecified; F32.A Depression, unspecified; Z88.1 Allergy status to other antibiotic agents; Z88.0 Allergy status to penicillin; Z88.2 Allergy status to sulfonamides; Z79.899 Other long term (current) drug therapy; Z68.42 Body mass index [BMI] 45.0-49.9, adult
CPT/HCPCS: 36415; 74250; 80053; 81001; 83690; 83735; 85025; 87081; 87086; 96365; 96375; 99285; J0696; J1885; J2270; J2765; J3475; J3490; J7060

== ENCOUNTER 2022-05-28 16:00 | Emergency (ER) | payer MEDICAID ==
[~2022-05-28] VITALS: Ht 177.8 cm; Wt 136.1 kg
[~2022-05-28 16:00] MED LIST changes: -CLIN150C1 PO; -DOCU-299 PO
[2022-05-28 16:22] VITALS: BP 137/91
[2022-05-28 16:59] LABS: BASOPHILS # (AUTO) 0.1 K/uL (0.00-0.22); EOSINOPHILS # (AUTO) 0.2 K/uL (0-0.4); EOSINOPHILS % (AUTO) 2.7 % (0.0-4.0); HEMATOCRIT 36.5 % (36-48); HEMOGLOBIN 11.9 g/dL (12.0-16.0); LYMPHOCYTES # (AUTO) 1.7 K/uL (2.5-16.5); LYMPHOCYTES % (AUTO) 27.7 % (20.5-51.1); MEAN CORPUSCULAR HEMOGLOBIN 26 pg (27-31); MEAN CORPUSCULAR HGB CONC 33 g/dL (33-37); MONOCYTES # (AUTO) 0.4 K/uL (0.8-1.0); MONOCYTES % (AUTO) 6.8 % (1.7-9.3); NEUTROPHILS # (AUTO) 3.9 K/uL (1.8-7.7); NEUTROPHILS % (AUTO) 61.8 % (42.2-75.2); PLATELET COUNT (AUTO) 280 K/uL (140-450); RED BLOOD CELL COUNT(AUTO) 4.51 MIL/uL (4.20-5.40); RED CELL DISTRIBUTION WIDTH 16.2 % (11.6-13.7); WHITE BLOOD COUNT (AUTO) 6.3 K/uL (4.8-10.8)
[2022-05-28 17:16] LABS: ACETAMINOPHEN < 0.5 ug/ml (10-30); ALBUMIN 3.6 g/dL (3.4-5.0); ANION GAP 11.5 (8-16); ASPARTATE AMINOTRANSFERASE 12 U/L (15-37); CARBON DIOXIDE 28.2 mmol/L (21-32); CHLORIDE 105 mmol/L (98-107); CREATININE 0.5 mg/dL (0.6-1.3); GFR ARICAN-AMERICAN 178 mL/min (>90); GLUCOSE 112 mg/dL (74-106); POTASSIUM 3.7 mmol/L (3.5-5.1); SALICYLATE < 2.8 mg/dL (2.8-20.0); SODIUM SERUM 141 mmol/L (136-145); TOTAL BILIRUBIN 0.2 mg/dL (0.0-1.0); UREA NITROGEN, BLOOD 8 mg/dL (7-18)
[2022-05-28 18:22] LABS: APPEARANCE,URINE CLEAR (CLEAR); BILIRUBIN,URINE NEGATIVE (NEGATIVE); BLOOD, URINE 1+ (NEGATIVE); COLOR,URINE YELLOW (YELLOW); LEUKOCYTE ESTERASE ,URINE TRACE (NEGATIVE); NITRITE, URINE NEGATIVE (NEGATIVE); PH,URINE 6.5 (5.0-9.0); UGLUCOSE NEGATIVE (NEGATIVE)
[2022-05-28 18:32] LABS: BARBITURATE, URINE NEGATIVE ng/ml (NEG <=200); BENZODIAZEPINE, URINE NEGATIVE ng/mL (NEG <=200); CANNABINOID, URINE NEGATIVE ng/mL (NEG <=50); COCAINE, URINE NEGATIVE ng/mL (NEG <=300); OPIATE, URINE NEGATIVE ng/mL (NEG <=2000); PHENCYCLIDINE SCREEN,URINE NEGATIVE ng/mL (NEG <=25)
[2022-05-28] MEDS ORDERED: DIVALPROEX 500 MG TABEC PO ONE (20:15)
[2022-05-28] MEDS ORDERED: OLANZapine 5 MG ODT PO ONE (20:15)
[2022-05-28] MEDS ORDERED: busPIRone 5 MG TAB ONE (20:24)
--- NOTE | 2022-05-28 21:37 | NUR ---
PT ELOPED WITH CAREGIVER. [place] [employer] IS PRESENT, SPOKE TO FACILITY MANAGEMENT STATES THE PT WALKED OFF AND CAREGIVER IS WITH HER THEY ARE SOMEWHERE BY [facility] CUADRA, [employer] RANDALL IS SEARCHING FOR PT.
--- NOTE | 2022-05-28 21:50 | NUR ---
PER SECURITY, PT AND CAREGIVER GOT INTO A CAR AND LEFT. CALLED AND SPOKE TO HARSH, UPDATED ON SITUATION, HARSH STATES PD IS WITH PT AND CARGIVER AT THIS TIME.
--- NOTE | 2022-05-28 22:26 | NUR ---
pt brought back by am[facility], may batista present to place on hold.
--- NOTE | 2022-05-28 22:35 | NUR ---
security chair side.
[2022-05-28] MEDS ORDERED: NITROFURANTOIN 100 MG CAP PO ONE (23:05)
--- NOTE | 2022-05-29 | NUR ---
37 Y/O F PRESENTS WITH SUICIDAL THOUGHTS AND STATED "I SWALLOWED GLASS." PT WAS WAITING FOR A BED, SHE BEGIN TO HIT HERSELF IN THE HEAD WITH HER FIST. PT REFUSED PAIN AT THE MOMENT, NVD. PT IS A&OX4, SKIN INTACT AND NO WOUNDS. PMH-DEPRESSION ALLERGIES-PENICILLINS, SULFA ANTIBIOTICS
--- NOTE | 2022-05-29 00:14 | NUR ---
pt placed in bed 05, room has already been stripped. security called to collect belongings
[2022-05-29] MEDS ORDERED: DIPH50CA69 PO (00:50)
[2022-05-29] MEDS ORDERED: APIX5TAB PO (00:50)
[2022-05-29] MEDS ORDERED: FAMO-90 PO (00:50)
[2022-05-29] MEDS ORDERED: OLAN20TA1 PO (00:50)
--- NOTE | 2022-05-29 01:00 | NUR ---
PT RESTING IN ROOM
--- NOTE | 2022-05-29 03:15 | NUR ---
Cheikh perez in [facility] - 05/29/22 at 0626 by ADIN pt resting in room and on child monitor
[2022-05-29] MEDS ORDERED: ACETAMINOPHEN 325 MG TAB PO ONE (06:15)
--- NOTE | 2022-05-29 06:25 | NUR ---
PT AWAKE IN ROOM, STATED ABDOMINAL PAIN 9/10 DUE TO HERNIA
--- NOTE | 2022-05-29 07:20 | NUR ---
Report recieved from KIMANI Severino for transfer of care.
[2022-05-29] MEDS: NITROFURANTOIN 100 MG CAP PO SCH ×2 (08:21→17:26)
--- NOTE | 2022-05-29 08:22 | NUR ---
Patient was offered breakfast tray, patient is sitting up eating.
[2022-05-29] MEDS ORDERED: DIVALPROEX 500 MG TABER PO SCH (09:00)
[2022-05-29] MEDS ORDERED: busPIRone 5 MG TAB PO SCH (09:00)
[2022-05-29] MEDS: FAMOTIDINE 20 MG TAB PO SCH (10:10)
[2022-05-29] MEDS: busPIRone 5 MG TAB PO SCH ×3 (10:11→17:26)
[2022-05-29] MEDS: APIXABAN 2.5 MG TAB PO SCH ×2 (10:11→21:00)
--- NOTE | 2022-05-29 10:11 | NUR ---
Patient is laying in bed, respirations even and unlabored. All needs met by staff.
[2022-05-29] MEDS: METOPROLOL 25 MG TAB PO SCH ×2 (10:12→21:00)
[2022-05-29] MEDS: metFORMIN 500 MG TAB PO SCH ×2 (10:12→21:00)
[2022-05-29] MEDS: SERTRALINE 50 MG TAB PO SCH (10:12)
--- NOTE | 2022-05-29 10:39 | NUR ---
Packet faxed to: [facility] SANC[facility] [place] [facility] [place]
[2022-05-29] MEDS: DIVALPROEX 500 MG TABEC PO SCH ×2 (13:13→17:25)
--- NOTE | 2022-05-29 13:27 | NUR ---
Patient ambulated to the restroom.
--- NOTE | 2022-05-29 14:20 | NUR ---
Patient is laying in bed, respirations even and unlabored. All needs met by staff.
--- NOTE | 2022-05-29 16:44 | NUR ---
Patient ambulated to the restroom with steady gait.
--- NOTE | 2022-05-29 18:09 | NUR ---
Patient was offered dinner tray, patient requested a sandwich instead.
--- NOTE | 2022-05-29 19:27 | NUR ---
Report given to SHAWANDA Chamorro for transfer of care.
--- NOTE | 2022-05-29 20:00 | NUR ---
RECEIVED PT IN [facility] ALERT ORIENTED, ON 5150 HOLD PENDING PLACEMENT. NAD. SAFETY MANTAINED.
[2022-05-29] MEDS ORDERED: OLANZapine 5 MG TAB PO SCH (21:00)
[2022-05-29] MEDS: ATORVASTATIN 20 MG TAB PO SCH (21:00)
--- NOTE | 2022-05-29 22:00 | NUR ---
PT ASLEEP NO S/S PAIN OR DISCOMFORT. NAD. SAFETY MAINTAINED
--- NOTE | 2022-05-29 22:15 | NUR ---
PT IS AWAKE AND STATED "I WANT TO CHOKE MYSELF TO ", STATES "THE VOICES SAID TO KILL MYSELF". FERMÍN MOORE MADE AWARE.
[2022-05-29] MEDS ORDERED: diphenhydrAMINE 50 MG/ML VIAL IM ONE (23:10)
--- NOTE | 2022-05-30 06:40 | NUR ---
please refer to behavioral health special precautions/observation record packet.
--- NOTE | 2022-05-30 07:16 | NUR ---
Pt report given to Brittani HARMAN. Transfer of care at this time.
--- NOTE | 2022-05-30 07:25 | NUR ---
Recieved report from SHAWANDA Oates for transfer of care.
--- NOTE | 2022-05-30 07:44 | NUR ---
Patient is eating breakfast tray.
--- NOTE | 2022-05-30 07:52 | NUR ---
patient ambulated to restroom with steady gait.
--- NOTE | 2022-05-30 08:01 | NUR ---
Patient informed staff, she ate a natalie and a dime when she went to the restroom. Patient was being supervised when she went to the restroom, nurse did not witness her eat anything. Patient states voices told her to eat the coins. Dr. Barbosa made aware.
[2022-05-30] MEDS ORDERED: HALOPERIDOL IM 5 MG/ML VIAL ONE (08:03)
[2022-05-30] MEDS ORDERED: LORazepam 2 MG/ML VIAL ONE (08:04)
[2022-05-30] MEDS ORDERED: LORazepam 2 MG/ML VIAL IM/IVP ONE (08:05)
[2022-05-30] MEDS ORDERED: HALOPERIDOL IM 5 MG/ML VIAL IM ONE (08:05)
[2022-05-30] MEDS ORDERED: diphenhydrAMINE 50 MG/ML VIAL IM ONE (08:05)
--- NOTE | 2022-05-30 08:05 | NUR ---
PT BEGAN CHOKING HERSELF, STAFF IMMEDIATELY REMOVED PTS HANDS FROM AROUND HER NECK. DR PIERRE AWARE. PT REPORTED "IM TRYING TO KILL MYSELF".
[2022-05-30] MEDS: NITROFURANTOIN 100 MG CAP PO SCH ×2 (08:28→17:28)
--- NOTE | 2022-05-30 08:31 | NUR ---
X-Ray at bedside.
--- NOTE | 2022-05-30 08:37 | NUR ---
RAD AT BEDSIDE
[2022-05-30] MEDS: FAMOTIDINE 20 MG TAB PO SCH (09:08)
[2022-05-30] MEDS: metFORMIN 500 MG TAB PO SCH ×2 (09:08→21:53)
[2022-05-30] MEDS: APIXABAN 2.5 MG TAB PO SCH ×2 (09:08→21:52)
[2022-05-30] MEDS: SERTRALINE 50 MG TAB PO SCH (09:09)
[2022-05-30] MEDS: DIVALPROEX 500 MG TABEC PO SCH ×3 (09:10→17:28)
--- NOTE | 2022-05-30 09:10 | NUR ---
Pulse is 116. Dr. Barbosa made aware, no orders recieved.
[2022-05-30] MEDS: busPIRone 5 MG TAB PO SCH ×3 (09:11→17:30)
[2022-05-30] MEDS: METOPROLOL 25 MG TAB PO SCH ×2 (09:12→21:58)
--- NOTE | 2022-05-30 10:55 | NUR ---
Patient is laying in bed, respirations even and unlabored. All needs met by staff.
--- NOTE | 2022-05-30 12:16 | NUR ---
Patient ambulated to restroom with steady gait and one on one integrated marketing manager to supervise.
--- NOTE | 2022-05-30 12:22 | NUR ---
Patient was offered lunch tray.
--- NOTE | 2022-05-30 14:33 | NUR ---
Patient ambulated to restroom with a one on one oil analyst to supervise.
[2022-05-30] MEDS ORDERED: ACETAMINOPHEN EXTRA STRENGTH 500 MG TAB PO ONE (15:55)
--- NOTE | 2022-05-30 15:58 | NUR ---
Patient reports pain to abdomen. Dr. David notified. Orders carried out.
--- NOTE | 2022-05-30 16:49 | NUR ---
Dr. Amor, psychiatrist, evaluating patient at bedside via Telepsych.
--- NOTE | 2022-05-30 17:17 | NUR ---
Patient ambulated to restroom with one on one director of integrated marketing.
--- NOTE | 2022-05-30 18:14 | NUR ---
Attempted to contact Elmer, responsible constitution party, left a voicemail to call back.
--- NOTE | 2022-05-30 19:33 | NUR ---
Report given to KIMANI Seveirno for transfer of care.
--- NOTE | 2022-05-30 19:45 | NUR ---
pt resting in room
--- NOTE | 2022-05-30 20:00 | NUR ---
pt tolerated food well, in room awake and talking
[2022-05-30] MEDS: OLANZapine 5 MG TAB PO SCH (21:54)
[2022-05-30] MEDS: ATORVASTATIN 20 MG TAB PO SCH (21:56)
--- NOTE | 2022-05-31 00:02 | NUR ---
pt awake and alert and stated "i want to go home, why is it taking so long i am tired of being here."
[2022-05-31] MEDS ORDERED: diphenhydrAMINE 50 MG/ML VIAL IVP ONE (00:25)
--- NOTE | 2022-05-31 00:33 | NUR ---
pt awake and alert, eating and stated pain is at a 7/10.
[2022-05-31] MEDS ORDERED: diphenhydrAMINE 50 MG CAP PO ONE (00:35)
--- NOTE | 2022-05-31 03:18 | NUR ---
pt resting in room
--- NOTE | 2022-05-31 04:27 | NUR ---
pt awake and alert, tolerating food well
--- NOTE | 2022-05-31 06:20 | NUR ---
pt ambulatory to restroom
--- NOTE | 2022-05-31 06:27 | NUR ---
pt back to room and on cardiac tech
--- NOTE | 2022-05-31 07:30 | NUR ---
Pt report given to Stefania HARMAN. Transfer of care at this time.
--- NOTE | 2022-05-31 07:30 | NUR ---
REPORT RECEIVED FROM ROSALINA HARMAN. ASSUMED CARE AT THIS TIME
--- NOTE | 2022-05-31 07:35 | NUR ---
pt in view and at rest w/ eyes closed. respirations even and unlabored. hob raised. bed at lowest position, bed rails upx2.
--- NOTE | 2022-05-31 08:49 | NUR ---
pt provided w/ breakfast. pt awake and eating in bed
[2022-05-31] MEDS: DIVALPROEX 500 MG TABEC PO SCH ×3 (09:06→17:06)
[2022-05-31] MEDS: NITROFURANTOIN 100 MG CAP PO SCH ×2 (09:06→17:06)
[2022-05-31] MEDS: busPIRone 5 MG TAB PO SCH ×3 (09:06→17:06)
[2022-05-31] MEDS: APIXABAN 2.5 MG TAB PO SCH ×2 (09:06→21:13)
[2022-05-31] MEDS: metFORMIN 500 MG TAB PO SCH ×2 (09:06→21:13)
[2022-05-31] MEDS: FAMOTIDINE 20 MG TAB PO SCH (09:07)
[2022-05-31] MEDS: SERTRALINE 50 MG TAB PO SCH (09:07)
[2022-05-31] MEDS: METOPROLOL 25 MG TAB PO SCH ×2 (09:07→21:14)
--- NOTE | 2022-05-31 11:12 | NUR ---
accompanied pt to restroom. pt amb w/ steady gait
--- NOTE | 2022-05-31 11:15 | NUR ---
pt amb back to room
--- NOTE | 2022-05-31 12:36 | NUR ---
pt provided and offered lunch tray ."not right now", tray left at bedside
--- NOTE | 2022-05-31 18:01 | NUR ---
pt offered and provided w/ dinner tray. left at bedside
--- NOTE | 2022-05-31 19:17 | NUR ---
REPORT GIVEN TO ISHMAEL HARMAN. TRANSFER OF CARE AT THIS TIME
--- NOTE | 2022-05-31 19:39 | NUR ---
PT WAITING TRANSFER . PT IN ROOM RESTING . DENIES PAIN AT THIS TIME. 5150 HOLD EXP.
[2022-05-31] MEDS ORDERED: CRUSHER, PILL MC ONE (21:10)
[2022-05-31] MEDS: ATORVASTATIN 20 MG TAB PO SCH (21:13)
[2022-05-31] MEDS: OLANZapine 5 MG TAB PO SCH (21:14)
--- NOTE | 2022-05-31 21:17 | NUR ---
CALLED FOR TRANSPORT ETA VOICEMAIL ON CELL PHONE. ATTEMPTED TO REACH STAFF AT [facility] NO ANSWER
[2022-05-31 21:21] VITALS: BP 111/59
--- NOTE | 2022-05-31 21:21 | NUR ---
Patient discharged with v/s stable. Written and verbal after care instructions given and explained. Patient verbalized understanding. Ambulatory with by caregiver. All questions addressed prior to discharge. Advised to follow up with PMD.
--- NOTE | 2022-06-01 04:05 | NUR ---
The patient's care was reviewed and supervised by Lashon Ferrera RN, RN.
== END 2022-05-31 21:21 | disposition home or self-care (01) ==
LOC: MED 16:00
DX: T18.8XXA Foreign body in other parts of alimentary tract, initial encounter (principal); R45.851 Suicidal ideations; F23 Brief psychotic disorder; Z20.822 Contact with and (suspected) exposure to COVID-19; R46.1 Bizarre personal appearance; F91.9 Conduct disorder, unspecified; E11.9 Type 2 diabetes mellitus without complications; I10 Essential (primary) hypertension; E78.00 Pure hypercholesterolemia, unspecified; F31.9 Bipolar disorder, unspecified; F20.9 Schizophrenia, unspecified; Z79.899 Other long term (current) drug therapy; Z79.1 Long term (current) use of non-steroidal anti-inflammatories (NSAID); Z79.01 Long term (current) use of anticoagulants; Z88.0 Allergy status to penicillin; Z88.2 Allergy status to sulfonamides; Z88.1 Allergy status to other antibiotic agents; X58.XXXA Exposure to other specified factors, initial encounter; Y92.89 Other specified places as the place of occurrence of the external cause; Y93.89 Activity, other specified; Y99.8 Other external cause status
CPT/HCPCS: 36415; 71045; 74018; 80053; 80305; 81001; 84484; 85025; 87086; 87426; 87635; 96372; 99285; C9803; G0480; G0482; J1200; J1630; J2060; Q0092; 93005

== ENCOUNTER 2022-06-13 19:46 | Emergency (ER) | payer MEDICAID ==
[~2022-06-13] VITALS: Ht 170.2 cm; Wt 142.9 kg
[~2022-06-13 19:46] MED LIST changes: +APIX5TAB PO; +DIPH50CA69 PO; +FAMO-90 PO
[2022-06-13 19:52] VITALS: BP 125/77
[2022-06-13 20:34] LABS: BASOPHILS # (AUTO) 0.1 K/uL (0.00-0.22); BASOPHILS % (AUTO) 0.7 % (0.0-2.0); EOSINOPHILS # (AUTO) 0.1 K/uL (0-0.4); EOSINOPHILS % (AUTO) 1.7 % (0.0-4.0); HEMATOCRIT 33.5 % (36-48); HEMOGLOBIN 11.2 g/dL (12.0-16.0); LYMPHOCYTES # (AUTO) 1.9 K/uL (2.5-16.5); LYMPHOCYTES % (AUTO) 22.4 % (20.5-51.1); MEAN CORPUSCULAR HEMOGLOBIN 26 pg (27-31); MEAN CORPUSCULAR HGB CONC 34 g/dL (33-37); MEAN CORPUSCULAR VOLUME 78.5 fL (80-94); MONOCYTES # (AUTO) 0.6 K/uL (0.8-1.0); NEUTROPHILS # (AUTO) 5.8 K/uL (1.8-7.7); NEUTROPHILS % (AUTO) 68.2 % (42.2-75.2); PLATELET COUNT (AUTO) 334 K/uL (140-450); RED BLOOD CELL COUNT(AUTO) 4.26 MIL/uL (4.20-5.40); RED CELL DISTRIBUTION WIDTH 16.3 % (11.6-13.7); WHITE BLOOD COUNT (AUTO) 8.5 K/uL (4.8-10.8)
[2022-06-13 20:48] LABS: BILIRUBIN,URINE NEGATIVE (NEGATIVE); BLOOD, URINE TRACE-I (NEGATIVE); LEUKOCYTE ESTERASE ,URINE NEGATIVE (NEGATIVE); NITRITE, URINE NEGATIVE (NEGATIVE); UGLUCOSE NEGATIVE (NEGATIVE)
[2022-06-13 20:50] LABS: APPEARANCE,URINE CLEAR (CLEAR); COLOR,URINE YELLOW (YELLOW)
[2022-06-13 20:56] LABS: RBC,URINE 0-5 /HPF (0-5); WBC,URINE NONE SEEN /HPF (0-5)
[2022-06-13 20:59] LABS: ALBUMIN 3.4 g/dL (3.4-5.0); ASPARTATE AMINOTRANSFERASE 10 U/L (15-37); CARBON DIOXIDE 27.6 mmol/L (21-32); CHLORIDE 102 mmol/L (98-107); CREATININE 0.7 mg/dL (0.6-1.3); GFR ARICAN-AMERICAN 120 mL/min (>90); GLUCOSE 208 mg/dL (74-106); POTASSIUM 3.6 mmol/L (3.5-5.1); SODIUM SERUM 139 mmol/L (136-145); TOTAL BILIRUBIN 0.2 mg/dL (0.0-1.0); UREA NITROGEN, BLOOD 13 mg/dL (7-18)
[2022-06-13 21:00] LABS: ACETAMINOPHEN < 0.5 ug/ml (10-30); SALICYLATE < 2.8 mg/dL (2.8-20.0)
[2022-06-13] MEDS ORDERED: ACET-9882 PO (22:02)
[2022-06-13 22:20] VITALS: BP 125/77
== END 2022-06-13 22:20 | disposition home or self-care (01) ==
LOC: MED 19:46
DX: S76.911A Strain of unspecified muscles, fascia and tendons at thigh level, right thigh, initial encounter (principal); R45.851 Suicidal ideations; Z20.822 Contact with and (suspected) exposure to COVID-19; E11.9 Type 2 diabetes mellitus without complications; I10 Essential (primary) hypertension; Z79.899 Other long term (current) drug therapy; Z79.01 Long term (current) use of anticoagulants; Z79.1 Long term (current) use of non-steroidal anti-inflammatories (NSAID); Z88.0 Allergy status to penicillin; Z88.2 Allergy status to sulfonamides; Z88.1 Allergy status to other antibiotic agents; F41.9 Anxiety disorder, unspecified; F31.9 Bipolar disorder, unspecified; X58.XXXA Exposure to other specified factors, initial encounter; Y92.89 Other specified places as the place of occurrence of the external cause; Y93.89 Activity, other specified; Y99.8 Other external cause status
CPT/HCPCS: 36415; 73552; 80053; 81001; 81025; 85025; 87426; 93005; 99285; G0480; G0482

== ENCOUNTER 2022-08-25 23:25 | Emergency (ER) | payer MEDICAID ==
[~2022-08-25] VITALS: Ht 167.6 cm; Wt 144.7 kg
[2022-08-25 23:35] VITALS: BP 116/70
--- NOTE | 2022-08-25 23:40 | NUR ---
pt taken to bed #7 with caregiver
--- NOTE | 2022-08-25 23:53 | NUR ---
COVID SWAB COLLECTED AND SENT TO LAB.
--- NOTE | 2022-08-25 23:59 | NUR ---
37 Y/O F presents with c/o SI xtoday bib caregiver. pt stated "she had argument with family and shortly after swallowed a piece of plastic from a picture frame that she found." pt is A&Ox4, skin intact, respirations even and unlabored. caregiver bedside. pt stated she has had previous pysch hospilizations. pmh- diabetes, htn, bipolar, cardiac disorders, pysch allergies- pcn, sulfa, cipro
[2022-08-26 00:33] LABS: BASOPHILS % (AUTO) 0.6 % (0.0-2.0); EOSINOPHILS # (AUTO) 0.2 K/uL (0-0.4); EOSINOPHILS % (AUTO) 2.6 % (0.0-4.0); HEMATOCRIT 32.3 % (36-48); HEMOGLOBIN 10.5 g/dL (12.0-16.0); LYMPHOCYTES # (AUTO) 2.2 K/uL (2.5-16.5); LYMPHOCYTES % (AUTO) 27.5 % (20.5-51.1); MEAN CORPUSCULAR HEMOGLOBIN 25 pg (27-31); MEAN CORPUSCULAR HGB CONC 32 g/dL (33-37); MEAN CORPUSCULAR VOLUME 77.9 fL (80-94); MONOCYTES # (AUTO) 0.7 K/uL (0.8-1.0); MONOCYTES % (AUTO) 8.7 % (1.7-9.3); NEUTROPHILS # (AUTO) 4.9 K/uL (1.8-7.7); NEUTROPHILS % (AUTO) 60.6 % (42.2-75.2); PLATELET COUNT (AUTO) 242 K/uL (140-450); RED BLOOD CELL COUNT(AUTO) 4.15 MIL/uL (4.20-5.40); WHITE BLOOD COUNT (AUTO) 8.1 K/uL (4.8-10.8)
--- NOTE | 2022-08-26 00:48 | NUR ---
DR. BISWAS SPEAKING WITH PATIENT VIA REMOTE COMMUNICATION
--- NOTE | 2022-08-26 01:08 | NUR ---
RETURN CALL FROM DR. BISWAS WHO SPOKE WITH PRIMARY NURSE Sharla RUIZ
--- NOTE | 2022-08-26 01:31 | NUR ---
[place] [employer] BEDSIDE
--- NOTE | 2022-08-26 01:36 | NUR ---
51/50 HOLD PLACED BY YAMILE RANDALL
[2022-08-26 01:38] LABS: ALBUMIN 2.7 g/dL (3.4-5.0); ANION GAP 11.5 (8-16); ASPARTATE AMINOTRANSFERASE 14 U/L (15-37); CARBON DIOXIDE 28.1 mmol/L (21-32); CHLORIDE 104 mmol/L (98-107); CREATININE 0.5 mg/dL (0.6-1.3); GFR ARICAN-AMERICAN 178 mL/min (>90); GLUCOSE 144 mg/dL (74-106); POTASSIUM 3.6 mmol/L (3.5-5.1); SODIUM SERUM 140 mmol/L (136-145); TOTAL BILIRUBIN 0.2 mg/dL (0.0-1.0); UREA NITROGEN, BLOOD 12 mg/dL (7-18)
[2022-08-26 01:39] LABS: SALICYLATE < 2.8 mg/dL (2.8-20.0)
--- NOTE | 2022-08-26 04:10 | NUR ---
PT RESTING IN ROOM, RESPIRATIONS EVEN AND UNLABORED. SITTER LEFT ONCE 51/50 HOLD WAS PLACED AT 0136.
[2022-08-26] MEDS ORDERED: FAMOTIDINE 20 MG TAB PO ONE (06:45)
[2022-08-26] MEDS ORDERED: ALUMINUM HYD/MAG/SIMETHICONE 30 ML UDC PO ONE (06:45)
--- NOTE | 2022-08-26 07:57 | NUR ---
PATIENT CONSUMING BREAKFAST WITHOUT ASSISTANCE
[2022-08-26] MEDS ORDERED: ACETAMINOPHEN 650 MG/20.3 ML UDC PO ONE (12:25)
[2022-08-26 12:56] LABS: APPEARANCE,URINE CLEAR (CLEAR); BILIRUBIN,URINE NEGATIVE (NEGATIVE); BLOOD, URINE NEGATIVE (NEGATIVE); COLOR,URINE YELLOW (YELLOW); LEUKOCYTE ESTERASE ,URINE NEGATIVE (NEGATIVE); NITRITE, URINE NEGATIVE (NEGATIVE); UGLUCOSE NEGATIVE (NEGATIVE)
[2022-08-26 14:06] LABS: BARBITURATE, URINE NEGATIVE ng/ml (NEG <=200); BENZODIAZEPINE, URINE NEGATIVE ng/mL (NEG <=200); CANNABINOID, URINE NEGATIVE ng/mL (NEG <=50); COCAINE, URINE NEGATIVE ng/mL (NEG <=300); OPIATE, URINE NEGATIVE ng/mL (NEG <=2000); PHENCYCLIDINE SCREEN,URINE NEGATIVE ng/mL (NEG <=25)
[2022-08-26] MEDS ORDERED: ACETAMINOPHEN 650 MG/20.3 ML UDC ONE (14:31)
--- NOTE | 2022-08-26 14:40 | NUR ---
patient requested a snack. called dietary for a sandwich
--- NOTE | 2022-08-26 14:44 | NUR ---
dietary deliverd a turkey sandwich. patient is eating without assitance.
--- NOTE | 2022-08-26 19:24 | NUR ---
Pt report given to milvia fox. Transfer of care at this time.
--- NOTE | 2022-08-26 19:30 | NUR ---
Patient appears to be resting comfortably in bed. Vital Signs within normal limits. Respirations even and unlabored.
--- NOTE | 2022-08-27 02:27 | NUR ---
pt awake and alert. tolerated food well. awaiting transfer
[2022-08-27] MEDS ORDERED: ACETAMINOPHEN EXTRA STRENGTH 500 MG TAB PO ONE ×2 (02:30→03:00)
[2022-08-27] MEDS ORDERED: ACETAMINOPHEN EXTRA STRENGTH 500 MG TAB ONE (02:30)
--- NOTE | 2022-08-27 04:43 | NUR ---
Patient appears to be resting comfortably in bed. Vital Signs within normal limits. Respirations even and unlabored.
--- NOTE | 2022-08-27 06:00 | NUR ---
RESTING IN BED WITH EYES CLOSED, RESPIRATIONS REGULAR AND UNLABORED
[2022-08-27] MEDS ORDERED: DIVA500T37 (10:35)
[2022-08-27] MEDS ORDERED: ATOR10TA51 (10:35)
[2022-08-27] MEDS ORDERED: OLAN10TA70 (10:35)
[2022-08-27] MEDS ORDERED: [UNRECOGNIZED DRUG - CODE] (10:35)
[2022-08-27] MEDS ORDERED: FAMO20TA13 (10:35)
[2022-08-27] MEDS ORDERED: METH-1866 (10:35)
[2022-08-27] MEDS ORDERED: RISP2TAB75 (10:35)
[2022-08-27] MEDS ORDERED: DOCU-3 (10:35)
[2022-08-27] MEDS ORDERED: SERT-164 (10:35)
[2022-08-27] MEDS ORDERED: BUSP15TA3 (10:35)
--- NOTE | 2022-08-27 12:10 | NUR ---
DC PLANNING OUTREACHED TO [facility] TO FOLLOW UP ON REFERRAL PACKET SENT BY ED. SPOKE WITH TRESSA AT [facility] WHO REPORTS PACKET WAS RECEIVED AND SENT TO MILENA SERNA, JUSTIN WANG, ANTONIO NIXON AND GABY POOLE
--- NOTE | 2022-08-27 12:35 | NUR ---
DR BISWAS TELE PSYCH REEVAL PT
--- NOTE | 2022-08-27 12:45 | NUR ---
DR BISWAS DC 1396, DR PALACIOS MADE AWARE
--- NOTE | 2022-08-27 15:02 | NUR ---
PT IS DC HOME BY , FACILITY REQUESTED CXR/KUB BEFORE DC HOME TO [facility] SURE PT DID NOT SWALLOW ANY FOREIGN BODY
--- NOTE | 2022-08-27 15:04 | NUR ---
CXR /IZABELLA COMPETED
--- NOTE | 2022-08-27 16:30 | NUR ---
[facility] PT STAYS TO LET THEM KNOW CXR KUB COMPLETED, PT IS CLEAR TO GO HOME, TRANSPORT ARRANGE , AMBULANCE WILL BE HERE AT 1900
[2022-08-27] MEDS ORDERED: metFORMIN 500 MG TAB PO SCH (17:00)
--- NOTE | 2022-08-27 19:19 | NUR ---
REPORT TO JESSIE MAYBERRY
--- NOTE | 2022-08-27 19:29 | NUR ---
Assumed care of patient, alert and awake at this time. No c/o pain, no SOB or distress.
[2022-08-27 19:40] VITALS: BP 114/67
--- NOTE | 2022-08-27 19:41 | NUR ---
Pt picked up by Fabien from [facility] for transfer. Alert, awake, responsive. No c/o pain or discomfort. VSS.
[2022-08-28] MEDS ORDERED: busPIRone 5 MG TAB PO SCH (09:00)
[2022-08-28] MEDS ORDERED: SERTRALINE 50 MG TAB PO SCH (09:00)
[2022-08-28] MEDS ORDERED: risperiDONE 1 MG TAB PO SCH (09:00)
== END 2022-08-27 19:41 | disposition home or self-care (01) ==
LOC: MED 23:25
DX: R45.851 Suicidal ideations (principal); E11.9 Type 2 diabetes mellitus without complications; I10 Essential (primary) hypertension; F20.9 Schizophrenia, unspecified; Z20.822 Contact with and (suspected) exposure to COVID-19; Z88.0 Allergy status to penicillin; Z88.1 Allergy status to other antibiotic agents; Z88.2 Allergy status to sulfonamides; Z79.899 Other long term (current) drug therapy; Z79.84 Long term (current) use of oral hypoglycemic drugs
CPT/HCPCS: 36415; 76010; 80053; 80305; 81003; 81025; 85025; 87426; 87635; 99285; G0480; Q0092

== ENCOUNTER 2022-10-06 22:47 | Emergency (ER) | payer MEDICAID ==
[~2022-10-06] VITALS: Ht 170.2 cm; Wt 142.4 kg
[~2022-10-06 22:47] MED LIST changes: +ATOR10TA51; +BUSP15TA3; +DIVA500T37; +DOCU-3; +FAMO20TA13; +METH-1866; +OLAN10TA70; +RISP2TAB75; +SERT-164; +[UNRECOGNIZED DRUG - CODE]
[2022-10-06 23:00] VITALS: BP 120/81; PULSE 87; RESP 16; TEMP 97.6; O2SAT 96
--- NOTE | 2022-10-06 23:05 | NUR ---
TO BED AMBULATORY
--- NOTE | 2022-10-06 23:28 | NUR ---
BIB by staff, Nicko, from [facility] for suicidal and homicidal thoughts. Per pt, she is having suicidal thoughts and swallowed a pen cap. Per report, pt broke a glass window in the facility causing a laceration on her right arm. Denies any pain at this time.
--- NOTE | 2022-10-06 23:32 | NUR ---
X-Ray at bedside.
[2022-10-06 23:35] LABS: BASOPHILS # (AUTO) 0.1 K/uL (0.00-0.22); BASOPHILS % (AUTO) 0.9 % (0.0-2.0); EOSINOPHILS # (AUTO) 0.3 K/uL (0-0.4); EOSINOPHILS % (AUTO) 2.9 % (0.0-4.0); HEMATOCRIT 34.1 % (36-48); HEMOGLOBIN 11.4 g/dL (12.0-16.0); LYMPHOCYTES # (AUTO) 2.7 K/uL (2.5-16.5); LYMPHOCYTES % (AUTO) 30.7 % (20.5-51.1); MEAN CORPUSCULAR HEMOGLOBIN 25 pg (27-31); MEAN CORPUSCULAR HGB CONC 33 g/dL (33-37); MONOCYTES # (AUTO) 0.6 K/uL (0.8-1.0); NEUTROPHILS # (AUTO) 5.1 K/uL (1.8-7.7); NEUTROPHILS % (AUTO) 58.5 % (42.2-75.2); PLATELET COUNT (AUTO) 294 K/uL (140-450); RED BLOOD CELL COUNT(AUTO) 4.49 MIL/uL (4.20-5.40); RED CELL DISTRIBUTION WIDTH 18.4 % (11.6-13.7); WHITE BLOOD COUNT (AUTO) 8.7 K/uL (4.8-10.8)
[2022-10-06 23:49] LABS: BARBITURATE, URINE NEGATIVE ng/ml (NEG <=200); BENZODIAZEPINE, URINE NEGATIVE ng/mL (NEG <=200); CANNABINOID, URINE NEGATIVE ng/mL (NEG <=50); COCAINE, URINE NEGATIVE ng/mL (NEG <=300); OPIATE, URINE NEGATIVE ng/mL (NEG <=2000); PHENCYCLIDINE SCREEN,URINE NEGATIVE ng/mL (NEG <=25)
[2022-10-06 23:52] LABS: ANION GAP 11.4 (8-16); ASPARTATE AMINOTRANSFERASE 13 U/L (15-37); CARBON DIOXIDE 29.3 mmol/L (21-32); CHLORIDE 103 mmol/L (98-107); CREATININE 0.5 mg/dL (0.6-1.3); GFR ARICAN-AMERICAN 178 mL/min (>90); GLUCOSE 115 mg/dL (74-106); POTASSIUM 3.7 mmol/L (3.5-5.1); SODIUM SERUM 140 mmol/L (136-145); TOTAL BILIRUBIN 0.2 mg/dL (0.0-1.0); UREA NITROGEN, BLOOD 8 mg/dL (7-18)
[2022-10-06 23:57] LABS: ACETAMINOPHEN < 0.5 ug/ml (10-30); SALICYLATE < 2.8 mg/dL (2.8-20.0)
--- NOTE | 2022-10-07 00:48 | NUR ---
Dr. David examining patient.
--- NOTE | 2022-10-07 00:48 | NUR ---
Cheikh perez in [facility] - 10/07/22 at 0049 by [id number] MD David at [facility].
--- NOTE | 2022-10-07 01:01 | NUR ---
Patient discharged with v/s stable. Written and verbal after care instructions given and explained. Patient verbalized understanding. Ambulatory with steady gait. Accompanied by Nicko from [facility]. All questions addressed prior to discharge. Advised to follow up with PMD.
[2022-10-07 01:05] VITALS: BP 120/81; PULSE 87; RESP 16; TEMP 97.6; O2SAT 96
== END 2022-10-07 01:01 | disposition home or self-care (01) ==
LOC: MED 22:47
DX: S51.811A Laceration without foreign body of right forearm, initial encounter (principal); Z20.822 Contact with and (suspected) exposure to COVID-19; R45.851 Suicidal ideations; T18.0XXA Foreign body in mouth, initial encounter; X58.XXXA Exposure to other specified factors, initial encounter; Y93.89 Activity, other specified; Y92.89 Other specified places as the place of occurrence of the external cause; Y99.8 Other external cause status
CPT/HCPCS: 36415; 71045; 74018; 80053; 80305; 81025; 85025; 87426; 87635; 99284; C9803; G0480; G0482; Q0092